=== PATIENT | female | born 1960 | race Caucasian/White ===

== ENCOUNTER 2019-11-30 19:41 | Inpatient (IN) | payer MEDICARE, OTHER ==
[~2019-11-30] VITALS: Ht 147.3 cm; Wt 70.1 kg
[2019-12-01 01:53] LABS: BASOPHILS % (AUTO) 0.8 % (0.0-2.0); HEMATOCRIT 36.9 % (36-46); HEMOGLOBIN 11.8 g/dL (12.0-16.0); LYMPHOCYTES # (AUTO) 2.7 K/uL (1.0-4.8); LYMPHOCYTES % (AUTO) 40.4 % (22.0-44.0); MEAN CORPUSCULAR HEMOGLOBIN 28.9 pg (26.0-34.0); MEAN CORPUSCULAR HGB CONC 32.1 G/dL (31.0-37.0); MEAN CORPUSCULAR VOLUME 90 fL (80-100); MONOCYTES # (AUTO) 0.3 K/uL (0.1-1.0); MONOCYTES % (AUTO) 5.1 % (2.0-9.0); NEUTROPHILS # (AUTO) 3.4 K/uL (1.8-7.7); NEUTROPHILS % (AUTO) 49.7 % (40.0-70.0); PLATELET COUNT (AUTO) 314 K/uL (150-450); RED BLOOD CELL COUNT(AUTO) 4.09 MIL/uL (4.00-5.20); RED CELL DISTRIBUTION WIDTH 19.2 % (11.5-14.5)
[2019-12-01 02:04] LABS: ANION GAP 6 mmol/L (8-16); CALCIUM, TOTAL 9.1 mg/dL (8.8-10.5); CARBON DIOXIDE 28 mmol/L (22-29); CHLORIDE 105 mmol/L (98-107); CREATININE 0.81 mg/dL (0.60-1.30); GLOMERULAR FILTR. RATE CALC > 60 mL/min (>60); GLUCOSE,RANDOM 102 mg/dL (70-110); POTASSIUM 3.9 mmol/L (3.5-5.1); SODIUM SERUM 139 mmol/L (136-145); UREA NITROGEN, BLOOD 19 mg/dL (7-18)
[2019-12-01 02:11] LABS: ALANINE AMINOTRANSFERASE 25 U/L (12-78); ALBUMIN 3.3 g/dL (3.4-5.0); ALKALINE PHOSPHATASE 69 U/L (46-116); ASPARTATE AMINOTRANSFERASE 20 U/L (15-37); BILIRUBIN,TOTAL 0.1 mg/dL (0.1-1.0); THYROID STIMULATING HORMONE 55.07 uIU/mL (0.36-3.74); TOTAL PROTEIN, SERUM 6.8 g/dL (6.4-8.2)
[2019-12-01] MEDS ORDERED: AZITHROMYCIN 500 MG/NS 250 ML IV ONE (03:30)
[2019-12-01] MEDS ORDERED: CefTRIAXone 1 GM/DEXTROSE 50 ML IV ONE (03:30)
[2019-12-01 04:22] LABS: PROTHROMBIN TIME 10.7 SEC (9.4-11.6)
[2019-12-01 04:34] LABS: LACTIC ACID 0.9 mmol/L (0.4-2.0)
[2019-12-01 04:49] LABS: C-REACTIVE PROTEIN QUANT 0.11 mg/dL (0.00-0.30); CREATINE KINASE, TOTAL ONLY 309 U/L (26-192); LACTATE DEHYDROGENASE 204 U/L (81-234)
[2019-12-01] MEDS ORDERED: 0.9% SODIUM CHLORIDE 10 ML SYRINGE IVP PRN (05:30)
[2019-12-01] MEDS ORDERED: ACETAMINOPHEN 325 MG TABLET PO PRN ×2 (05:30→07:30)
[2019-12-01 06:04] LABS: B-TYPE NATRIURETIC PEPTIDE < 4 pg/mL (0-100)
[2019-12-01] MEDS ORDERED: SODIUM CHLORIDE 0.9% 1,000 ML IV ONE (07:30)
[2019-12-01] MEDS ORDERED: MAGNESIUM HYDROXIDE SUSPENSION 30 ML UDCUP PO PRN (07:30)
[2019-12-01] MEDS: LEVOTHYROXINE SODIUM 50 MCG TABLET PO SCH (07:30)
[2019-12-01] MEDS: HEPARIN SODIUM,PORCINE 5,000 UNITS/ML VIAL SQ SCH ×2 (08:00→15:42)
[2019-12-01] MEDS: MULTIVITAMINS WITH MINERALS, THERAPEUTIC TABLET PO SCH (09:00)
[2019-12-01 09:37] VITALS: BP 134/71
[2019-12-01 11:15] VITALS: BP 120/82
[2019-12-01 19:44] VITALS: BP 108/69
[2019-12-02 04:32] VITALS: BP 126/79
[2019-12-02] MEDS: LEVOTHYROXINE SODIUM 50 MCG TABLET PO SCH (06:00)
[2019-12-02 07:11] VITALS: BP 108/82
[2019-12-02] MEDS: HEPARIN SODIUM,PORCINE 5,000 UNITS/ML VIAL SQ SCH ×3 (08:00→16:00)
[2019-12-02 08:28] LABS: APPEARANCE,URINE CLOUDY (CLEAR); BILIRUBIN,URINE NEGATIVE (NEGATIVE); GLUCOSE, URINE (UA) NEGATIVE (NEGATIVE); KETONES,URINE NEGATIVE (NEGATIVE); LEUKOCYTE ESTERASE ,URINE SMALL (NEGATIVE); NITRATE,URINE NEGATIVE (NEGATIVE); OCCULT BLOOD,URINE NEGATIVE (NEGATIVE); PH,URINE 6.5 (5.0-8.0); PROTEIN,URINE TRACE (NEGATIVE); UROBILINOGEN,URINE 0.2 mg/dL (<=1.0)
[2019-12-02 08:33] LABS: AMPHET/METH SCREEN,URINE NEGATIVE (NEGATIVE); BARBITURATE SCREEN, URINE NEGATIVE (NEGATIVE); BENZODIAZEPINES SCREEN,URINE NEGATIVE (NEGATIVE); CANNABINOID SCREEN,URINE NEGATIVE (NEGATIVE); COCAINE SCREEN,URINE NEGATIVE (NEGATIVE); METHADONE SCREEN, URINE NEGATIVE (NEGATIVE); OPIATE SCREEN,URINE NEGATIVE (NEGATIVE)
[2019-12-02] MEDS: MULTIVITAMINS WITH MINERALS, THERAPEUTIC TABLET PO SCH (08:47)
[2019-12-02 08:54] LABS: BACTERIA,URINE None Seen /HPF (None Seen); PHENCYCLIDINE SCREEN,URINE NEGATIVE (NEGATIVE); RBC,URINE 0-2 /HPF (0-2); SQUAMOUS EPITHELIAL CELL,UR Few /LPF (None Seen)
[2019-12-02 11:04] VITALS: BP 127/52
[2019-12-02] MEDS ORDERED: LEVO50 PO (12:15)
[2019-12-02] MEDS ORDERED: MULT-685 PO (12:16)
[2019-12-02] MEDS ORDERED: ALBU8.5H8 IH (12:17)
[2019-12-02] MEDS ORDERED: OLANZapine 5 MG RAPDIS TABLET PO PRN (15:00)
[2019-12-02 15:35] VITALS: BP 137/89
[2019-12-02] MEDS ORDERED: NALT50TA6 PO (18:58)
[2019-12-02] MEDS ORDERED: OLAN7.5T2 PO (18:59)
[2019-12-02] MEDS ORDERED: PARO10TA89 PO (18:59)
[2019-12-02] MEDS ORDERED: ACET-3207 PO (19:00)
[2019-12-02] MEDS ORDERED: MOM30 PO (19:01)
[2019-12-02] MEDS ORDERED: OLAN5TAB2 PO (19:02)
[2019-12-02] MEDS ORDERED: OLANZapine 5 MG RAPDIS TABLET PO SCH (21:00)
[2019-12-03] MEDS ORDERED: PARoxetine HCL 20 MG TABLET PO SCH (09:00)
[2019-12-03] MEDS ORDERED: NALTREXONE HCL 50 MG TABLET PO SCH (09:00)
== END 2019-12-02 18:40 | DRG 885 ==
LOC: EMS 19:42 → 5S 12-01 03:35 → 6N 12-01 05:49
PROVIDERS: ADMIT Internal Medicine; ATTEND Internal Medicine
DX: F29 Unspecified psychosis not due to a substance or known physiological condition (principal); E43 Unspecified severe protein-calorie malnutrition; E03.9 Hypothyroidism, unspecified; Z59.0 Homelessness; F17.210 Nicotine dependence, cigarettes, uncomplicated; I10 Essential (primary) hypertension; K58.9 Irritable bowel syndrome, unspecified; Z85.850 Personal history of malignant neoplasm of thyroid; Z68.32 Body mass index [BMI] 32.0-32.9, adult; Z88.8 Allergy status to other drugs, medicaments and biological substances; J44.9 Chronic obstructive pulmonary disease, unspecified; Z03.818 Encounter for observation for suspected exposure to other biological agents ruled out; Z91.19 Patient's noncompliance with other medical treatment and regimen
CPT/HCPCS: 83605; 83615; 84443; 86140; 87040; 87086; G0480; J0456; J0696; J1644; J7030

== ENCOUNTER 2019-12-02 16:50 | Inpatient (IN) | payer MEDICARE, MEDICAID ==
[~2019-12-02] VITALS: Ht 152.4 cm; Wt 68.6 kg
[~2019-12-02 16:50] MED LIST: ALBU8.5H8 IH; GABA-1181 PO; LEVO100 PO; LEVO50 PO; MULT-685 PO; NITR100C4 PO; PARO-66 PO
[2019-12-02] MEDS ORDERED: NALT50TA6 PO (18:58)
[2019-12-02] MEDS ORDERED: PARO10TA89 PO (18:59)
[2019-12-02] MEDS ORDERED: OLAN7.5T2 PO (18:59)
[2019-12-02] MEDS ORDERED: GuaiFENesin/D-METHORPHAN [SUGAR-FREE] 200-20MG/10 ML SYRUP UDCUP PO PRN (19:00)
[2019-12-02] MEDS ORDERED: ZOLPIDEM TARTRATE 10 MG TABLET PO PRN (19:00)
[2019-12-02] MEDS ORDERED: PROMETHAZINE HCL 25 MG TABLET PO PRN (19:00)
[2019-12-02] MEDS ORDERED: LOPERAMIDE HCL 2 MG CAPSULE PO PRN (19:00)
[2019-12-02] MEDS ORDERED: ACET-3207 PO (19:00)
[2019-12-02] MEDS ORDERED: QUEtiapine FUMARATE 100 MG TABLET PO PRN (19:00)
[2019-12-02] MEDS ORDERED: ACETAMINOPHEN 325 MG TABLET PO PRN (19:00)
[2019-12-02] MEDS ORDERED: PALIPERIDONE PALMITATE 234 MG/1.5 ML SYRINGE IM ONE (19:00)
[2019-12-02] MEDS ORDERED: TUBERCULIN, PURIFIED PROTEIN DERIVATIVE 5 TU/0.1 ML SYRINGE ID ONE (19:00)
[2019-12-02] MEDS ORDERED: PALIPERIDONE 1.5 MG ER TABLET PO PRN (19:00)
[2019-12-02] MEDS ORDERED: MAG HYDROX/AL HYDROX/SIMETH ES 30 ML SUSPENSION UDCUP PO PRN (19:00)
[2019-12-02] MEDS ORDERED: HydrOXYzine PAMOATE 50 MG CAPSULE PO PRN (19:00)
[2019-12-02] MEDS ORDERED: MAGNESIUM HYDROXIDE SUSPENSION 30 ML UDCUP PO PRN (19:00)
[2019-12-02] MEDS ORDERED: MOM30 PO (19:01)
[2019-12-02] MEDS ORDERED: OLAN5TAB2 PO (19:02)
[2019-12-02 20:09] VITALS: BP 148/92
[2019-12-02] MEDS: THIAMINE 100 MG TABLET PO SCH (20:24)
[2019-12-02] MEDS: PALIPERIDONE 3 MG ER TABLET PO SCH (20:24)
[2019-12-02] MEDS ORDERED: PNEUMOCOCCAL VACCINE POLYVALENT 0.5 ML VIAL [PPSV23] IM ONE (20:45)
[2019-12-03] MEDS: LEVOTHYROXINE SODIUM 50 MCG TABLET PO SCH (06:27)
[2019-12-03] MEDS: FOLIC ACID 1 MG TABLET PO SCH (08:09)
[2019-12-03] MEDS: THIAMINE 100 MG TABLET PO SCH ×2 (08:09→17:04)
[2019-12-03] MEDS: NALTREXONE HCL 50 MG TABLET PO SCH (08:09)
[2019-12-03] MEDS: DULoxetine HCL 20 MG CAPSULE PO SCH (08:09)
[2019-12-03] MEDS: MULTIVITAMINS WITH MINERALS, THERAPEUTIC TABLET PO SCH (08:09)
[2019-12-03 08:48] VITALS: BP 147/88
[2019-12-03] MEDS ORDERED: MULTIVITAMINS WITH MINERALS, THERAPEUTIC TABLET PO SCH (09:00)
[2019-12-03] MEDS: PALIPERIDONE 3 MG ER TABLET PO SCH (20:59)
[2019-12-04] MEDS: LEVOTHYROXINE SODIUM 50 MCG TABLET PO SCH (06:51)
[2019-12-04 08:00] VITALS: BP 159/86
[2019-12-04] MEDS: NALTREXONE HCL 50 MG TABLET PO SCH (08:12)
[2019-12-04] MEDS: THIAMINE 100 MG TABLET PO SCH ×2 (08:12→16:02)
[2019-12-04] MEDS: MULTIVITAMINS WITH MINERALS, THERAPEUTIC TABLET PO SCH (08:12)
[2019-12-04] MEDS: FOLIC ACID 1 MG TABLET PO SCH (08:12)
[2019-12-04] MEDS: DULoxetine HCL 20 MG CAPSULE PO SCH (08:12)
[2019-12-04 16:00] VITALS: BP 116/95
[2019-12-04] MEDS: FEXOFENADINE HCL 60 MG TABLET PO SCH (19:45)
[2019-12-04] MEDS: PALIPERIDONE 3 MG ER TABLET PO SCH (20:20)
[2019-12-05] MEDS: LEVOTHYROXINE SODIUM 50 MCG TABLET PO SCH (06:46)
[2019-12-05] MEDS: NALTREXONE HCL 50 MG TABLET PO SCH (09:00)
[2019-12-05] MEDS: THIAMINE 100 MG TABLET PO SCH ×2 (09:00→16:02)
[2019-12-05] MEDS: DULoxetine HCL 20 MG CAPSULE PO SCH (09:00)
[2019-12-05] MEDS: FEXOFENADINE HCL 60 MG TABLET PO SCH ×2 (09:00→16:02)
[2019-12-05] MEDS: FOLIC ACID 1 MG TABLET PO SCH (09:00)
[2019-12-05] MEDS: MULTIVITAMINS WITH MINERALS, THERAPEUTIC TABLET PO SCH (09:00)
[2019-12-05 16:48] VITALS: BP 134/87
[2019-12-05] MEDS: LORazepam 2 MG TABLET PO PRN (20:00)
[2019-12-05] MEDS: PALIPERIDONE 3 MG ER TABLET PO SCH (20:03)
[2019-12-06] MEDS: LORazepam 2 MG TABLET PO PRN (00:25)
[2019-12-06 04:55] VITALS: BP 128/80
[2019-12-06] MEDS: LEVOTHYROXINE SODIUM 50 MCG TABLET PO SCH (07:00)
[2019-12-06 08:30] VITALS: BP 100/73
[2019-12-06] MEDS ORDERED: PALIPERIDONE PALMITATE 156 MG/ML SYRINGE IM ONE (09:00)
[2019-12-06] MEDS: MULTIVITAMINS WITH MINERALS, THERAPEUTIC TABLET PO SCH (09:04)
[2019-12-06] MEDS: FOLIC ACID 1 MG TABLET PO SCH (09:05)
[2019-12-06] MEDS: DULoxetine HCL 20 MG CAPSULE PO SCH (09:05)
[2019-12-06] MEDS: FEXOFENADINE HCL 60 MG TABLET PO SCH ×2 (09:05→16:27)
[2019-12-06] MEDS: THIAMINE 100 MG TABLET PO SCH ×2 (09:06→16:21)
[2019-12-06] MEDS: NALTREXONE HCL 50 MG TABLET PO SCH (09:07)
[2019-12-06] MEDS ORDERED: OLANZapine 5 MG RAPDIS TABLET PO PRN (15:00)
[2019-12-06] MEDS ORDERED: OLANZapine 5 MG RAPDIS TABLET PO SCH (21:00)
[2019-12-07] MEDS: LEVOTHYROXINE SODIUM 75 MCG TABLET PO SCH (07:00)
[2019-12-07 08:00] VITALS: BP 113/62
[2019-12-07] MEDS: NALTREXONE HCL 50 MG TABLET PO SCH (09:00)
[2019-12-07] MEDS: FOLIC ACID 1 MG TABLET PO SCH (09:00)
[2019-12-07] MEDS: DULoxetine HCL 20 MG CAPSULE PO SCH (09:00)
[2019-12-07] MEDS: MULTIVITAMINS WITH MINERALS, THERAPEUTIC TABLET PO SCH (09:00)
[2019-12-07] MEDS: THIAMINE 100 MG TABLET PO SCH ×2 (09:00→16:41)
[2019-12-07] MEDS: FEXOFENADINE HCL 60 MG TABLET PO SCH ×2 (09:00→16:40)
[2019-12-07 19:14] VITALS: BP 108/78
[2019-12-07] MEDS: ARIPiprazole 15 MG TABLET PO SCH (20:45)
[2019-12-07] MEDS: GABAPENTIN 300 MG CAPSULE PO SCH (20:45)
[2019-12-07] MEDS ORDERED: DiphenhydrAMINE HCL 50 MG CAPSULE PO SCH (21:00)
[2019-12-08] MEDS: LEVOTHYROXINE SODIUM 75 MCG TABLET PO SCH (07:00)
[2019-12-08] MEDS: FEXOFENADINE HCL 60 MG TABLET PO SCH ×2 (08:21→17:00)
[2019-12-08] MEDS: MULTIVITAMINS WITH MINERALS, THERAPEUTIC TABLET PO SCH (08:21)
[2019-12-08] MEDS: GABAPENTIN 300 MG CAPSULE PO SCH ×4 (08:21→20:47)
[2019-12-08] MEDS: FOLIC ACID 1 MG TABLET PO SCH (08:22)
[2019-12-08] MEDS: PARoxetine HCL 10 MG TABLET PO SCH (08:22)
[2019-12-08] MEDS: THIAMINE 100 MG TABLET PO SCH ×2 (08:23→16:55)
[2019-12-08] MEDS: NALTREXONE HCL 50 MG TABLET PO SCH (08:23)
[2019-12-08 17:00] VITALS: BP 129/71
[2019-12-08] MEDS: DiphenhydrAMINE HCL 50 MG CAPSULE PO SCH (20:47)
[2019-12-08] MEDS: ARIPiprazole 15 MG TABLET PO SCH (20:47)
[2019-12-09] MEDS: LEVOTHYROXINE SODIUM 75 MCG TABLET PO SCH (06:57)
[2019-12-09] MEDS: FEXOFENADINE HCL 60 MG TABLET PO SCH ×2 (08:52→16:43)
[2019-12-09] MEDS: THIAMINE 100 MG TABLET PO SCH ×2 (08:52→16:45)
[2019-12-09] MEDS: MULTIVITAMINS WITH MINERALS, THERAPEUTIC TABLET PO SCH (08:52)
[2019-12-09] MEDS: PARoxetine HCL 10 MG TABLET PO SCH (08:52)
[2019-12-09] MEDS: GABAPENTIN 300 MG CAPSULE PO SCH ×4 (08:52→20:40)
[2019-12-09] MEDS: NALTREXONE HCL 50 MG TABLET PO SCH (08:53)
[2019-12-09] MEDS: FOLIC ACID 1 MG TABLET PO SCH (08:53)
[2019-12-09 09:39] VITALS: BP 98/53
[2019-12-09 16:37] VITALS: BP 129/73
[2019-12-09] MEDS: DiphenhydrAMINE HCL 50 MG CAPSULE PO SCH (20:41)
[2019-12-09] MEDS: ARIPiprazole 10 MG TABLET PO SCH (20:41)
[2019-12-10] MEDS: LEVOTHYROXINE SODIUM 75 MCG TABLET PO SCH (06:43)
[2019-12-10] MEDS: GABAPENTIN 300 MG CAPSULE PO SCH ×4 (08:33→21:00)
[2019-12-10] MEDS: MULTIVITAMINS WITH MINERALS, THERAPEUTIC TABLET PO SCH (08:33)
[2019-12-10] MEDS: THIAMINE 100 MG TABLET PO SCH ×2 (08:33→16:12)
[2019-12-10] MEDS: FOLIC ACID 1 MG TABLET PO SCH (08:34)
[2019-12-10] MEDS: PARoxetine HCL 10 MG TABLET PO SCH (08:34)
[2019-12-10] MEDS: FEXOFENADINE HCL 60 MG TABLET PO SCH ×2 (08:35→16:23)
[2019-12-10] MEDS: NALTREXONE HCL 50 MG TABLET PO SCH (08:35)
[2019-12-10 16:11] VITALS: BP 139/76
[2019-12-10] MEDS: DiphenhydrAMINE HCL 50 MG CAPSULE PO SCH (20:24)
[2019-12-10] MEDS: ARIPiprazole 10 MG TABLET PO SCH (20:24)
[2019-12-11] MEDS: LEVOTHYROXINE SODIUM 75 MCG TABLET PO SCH (07:00)
[2019-12-11] MEDS: GABAPENTIN 300 MG CAPSULE PO SCH ×4 (08:53→21:00)
[2019-12-11] MEDS: PARoxetine HCL 10 MG TABLET PO SCH (08:53)
[2019-12-11] MEDS: MULTIVITAMINS WITH MINERALS, THERAPEUTIC TABLET PO SCH (08:53)
[2019-12-11] MEDS: THIAMINE 100 MG TABLET PO SCH ×2 (08:54→18:58)
[2019-12-11] MEDS: FEXOFENADINE HCL 60 MG TABLET PO SCH ×2 (08:54→17:00)
[2019-12-11] MEDS: NALTREXONE HCL 50 MG TABLET PO SCH (08:54)
[2019-12-11] MEDS: FOLIC ACID 1 MG TABLET PO SCH (08:54)
[2019-12-11 09:18] VITALS: BP 104/63
[2019-12-11 10:55] LABS: FREE T4 (FREE THYROXINE) 0.23 ng/dL (0.76-1.46); MAGNESIUM 1.9 mg/dL (1.80-2.40); THYROID STIMULATING HORMONE 45.68 uIU/mL (0.36-3.74)
[2019-12-11 16:18] VITALS: BP 142/85
[2019-12-11] MEDS: ARIPiprazole 10 MG TABLET PO SCH (20:40)
[2019-12-11] MEDS: DiphenhydrAMINE HCL 50 MG CAPSULE PO SCH (20:40)
[2019-12-12] MEDS: LEVOTHYROXINE SODIUM 75 MCG TABLET PO SCH (06:20)
[2019-12-12] MEDS: NALTREXONE HCL 50 MG TABLET PO SCH (08:46)
[2019-12-12] MEDS: GABAPENTIN 300 MG CAPSULE PO SCH ×2 (08:46→12:02)
[2019-12-12] MEDS: FOLIC ACID 1 MG TABLET PO SCH (08:46)
[2019-12-12] MEDS: PARoxetine HCL 10 MG TABLET PO SCH (08:46)
[2019-12-12] MEDS: THIAMINE 100 MG TABLET PO SCH (08:46)
[2019-12-12] MEDS: MULTIVITAMINS WITH MINERALS, THERAPEUTIC TABLET PO SCH (08:46)
[2019-12-12] MEDS: FEXOFENADINE HCL 60 MG TABLET PO SCH ×2 (08:54→16:58)
[2019-12-12 09:19] VITALS: BP 87/48
[2019-12-12 09:45] VITALS: BP 121/74
[2019-12-12 17:00] VITALS: BP 134/110
[2019-12-12] MEDS: GABAPENTIN 400 MG CAPSULE PO SCH ×2 (17:00→20:09)
[2019-12-12] MEDS: DiphenhydrAMINE HCL 50 MG CAPSULE PO SCH (20:08)
[2019-12-12] MEDS: ARIPiprazole 10 MG TABLET PO SCH (20:08)
[2019-12-13] MEDS: LEVOTHYROXINE SODIUM 75 MCG TABLET PO SCH (06:19)
[2019-12-13] MEDS: MULTIVITAMINS WITH MINERALS, THERAPEUTIC TABLET PO SCH (08:36)
[2019-12-13] MEDS: PARoxetine HCL 10 MG TABLET PO SCH (08:36)
[2019-12-13] MEDS: NALTREXONE HCL 50 MG TABLET PO SCH (08:44)
[2019-12-13] MEDS: GABAPENTIN 400 MG CAPSULE PO SCH ×3 (08:44→16:12)
[2019-12-13] MEDS: FEXOFENADINE HCL 60 MG TABLET PO SCH ×2 (08:44→16:12)
[2019-12-13 10:40] VITALS: BP 120/82
[2019-12-13 16:49] VITALS: BP 121/79
[2019-12-13] MEDS ORDERED: ARIPiprazole ER SUSPENSION 400 MG PRE-FILLED DUAL CHAMBER SYRINGE IM ONE (19:30)
[2019-12-13] MEDS: ARIPiprazole 10 MG TABLET PO SCH (20:03)
[2019-12-13] MEDS: DiphenhydrAMINE HCL 50 MG CAPSULE PO SCH (20:03)
[2019-12-14] MEDS: LEVOTHYROXINE SODIUM 75 MCG TABLET PO SCH (06:45)
[2019-12-14 08:10] VITALS: BP 128/77
[2019-12-14] MEDS: MULTIVITAMINS WITH MINERALS, THERAPEUTIC TABLET PO SCH (08:47)
[2019-12-14] MEDS: PARoxetine HCL 10 MG TABLET PO SCH (08:48)
[2019-12-14] MEDS: NALTREXONE HCL 50 MG TABLET PO SCH (09:00)
[2019-12-14] MEDS: FEXOFENADINE HCL 60 MG TABLET PO SCH ×2 (09:00→16:26)
[2019-12-14] MEDS: DiphenhydrAMINE HCL 50 MG CAPSULE PO SCH (20:03)
[2019-12-14] MEDS: ARIPiprazole 10 MG TABLET PO SCH (20:03)
[2019-12-14 20:50] VITALS: BP 132/68
[2019-12-15] MEDS: LEVOTHYROXINE SODIUM 75 MCG TABLET PO SCH (06:33)
[2019-12-15 08:00] VITALS: BP 124/80
[2019-12-15] MEDS: NALTREXONE HCL 50 MG TABLET PO SCH (09:00)
[2019-12-15] MEDS: FEXOFENADINE HCL 60 MG TABLET PO SCH ×2 (09:00→16:59)
[2019-12-15] MEDS: PARoxetine HCL 10 MG TABLET PO SCH (09:28)
[2019-12-15] MEDS: MULTIVITAMINS WITH MINERALS, THERAPEUTIC TABLET PO SCH (09:30)
[2019-12-15 16:00] VITALS: BP 137/86
[2019-12-15] MEDS ORDERED: PARO10TA71 PO (16:10)
[2019-12-15] MEDS ORDERED: ARIP400S3 IM (16:10)
[2019-12-15] MEDS ORDERED: NALT50TA PO (16:10)
[2019-12-15] MEDS ORDERED: ARIP10TA8 PO (16:10)
[2019-12-15] MEDS ORDERED: DIPH50 PO (16:10)
[2019-12-15] MEDS: ARIPiprazole 10 MG TABLET PO SCH (20:23)
[2019-12-15] MEDS: DiphenhydrAMINE HCL 50 MG CAPSULE PO SCH (20:23)
[2019-12-16 04:25] VITALS: BP 125/81
[2019-12-16] MEDS: LEVOTHYROXINE SODIUM 75 MCG TABLET PO SCH (06:14)
[2019-12-16] MEDS: FEXOFENADINE HCL 60 MG TABLET PO SCH (09:00)
[2019-12-16] MEDS: NALTREXONE HCL 50 MG TABLET PO SCH (09:00)
[2019-12-16] MEDS: MULTIVITAMINS WITH MINERALS, THERAPEUTIC TABLET PO SCH (09:06)
[2019-12-16] MEDS: PARoxetine HCL 10 MG TABLET PO SCH (09:06)
[2019-12-16] MEDS ORDERED: FEXO-23 PO (11:02)
[2019-12-16] MEDS ORDERED: LEVO75 PO (11:02)
[2020-01-10] MEDS ORDERED: ARIPiprazole ER SUSPENSION 400 MG PRE-FILLED DUAL CHAMBER SYRINGE IM SCH (09:00)
== END 2019-12-16 13:50 | disposition home or self-care (01) | DRG 885 ==
LOC: 3EX 18:45
PROVIDERS: ADMIT Psychiatry & Neurology Psychiatry; ATTEND Psychiatry & Neurology Psychiatry
DX: F25.0 Schizoaffective disorder, bipolar type (principal); N39.0 Urinary tract infection, site not specified; M62.82 Rhabdomyolysis; F25.1 Schizoaffective disorder, depressive type; F17.210 Nicotine dependence, cigarettes, uncomplicated; F10.20 Alcohol dependence, uncomplicated; E78.5 Hyperlipidemia, unspecified; E66.9 Obesity, unspecified; D64.9 Anemia, unspecified; E03.9 Hypothyroidism, unspecified; J44.9 Chronic obstructive pulmonary disease, unspecified; R26.9 Unspecified abnormalities of gait and mobility; J30.9 Allergic rhinitis, unspecified; Z68.32 Body mass index [BMI] 32.0-32.9, adult; Z59.0 Homelessness; Z91.19 Patient's noncompliance with other medical treatment and regimen; Z99.3 Dependence on wheelchair; Z56.0 Unemployment, unspecified; Z88.2 Allergy status to sulfonamides; Z88.8 Allergy status to other drugs, medicaments and biological substances; Z88.6 Allergy status to analgesic agent
CPT/HCPCS: 83735; 84439; 84443; 86592; 87081; 97162; 97530; G0378; J0401

== ENCOUNTER 2020-01-16 11:37 | Inpatient (IN) | payer MEDICARE, MEDICAID ==
[~2020-01-16] VITALS: Ht 152.4 cm; Wt 73.0 kg
[~2020-01-16 11:37] MED LIST changes: -ALBU8.5H8 IH; +ARIP10TA8 PO; +ARIP400S3 IM; +DIPH50 PO; +FEXO-23 PO; -GABA-1181 PO; -LEVO100 PO; -LEVO50 PO; +LEVO75 PO; -MULT-685 PO; +NALT50TA PO; -NITR100C4 PO; -PARO-66 PO; +PARO10TA71 PO
[2020-01-16] MEDS ORDERED: LORazepam 2 MG/ML VIAL IM ONE ×2 (12:30→14:00)
[2020-01-16] MEDS ORDERED: HALOPERIDOL LACTATE 5 MG/ML VIAL IM ONE (12:30)
[2020-01-16] MEDS ORDERED: DiphenhydrAMINE HCL 50 MG/ML VIAL IM ONE ×2 (12:30→14:00)
[2020-01-16] MEDS ORDERED: GuaiFENesin/D-METHORPHAN [SUGAR-FREE] 200-20MG/10 ML SYRUP UDCUP PO PRN (15:00)
[2020-01-16] MEDS ORDERED: OLANZapine 5 MG RAPDIS TABLET PO PRN (15:00)
[2020-01-16] MEDS ORDERED: PROMETHAZINE HCL 25 MG TABLET PO PRN (15:00)
[2020-01-16] MEDS ORDERED: HydrOXYzine PAMOATE 50 MG CAPSULE PO PRN (15:00)
[2020-01-16] MEDS ORDERED: MAG HYDROX/AL HYDROX/SIMETH ES 30 ML SUSPENSION UDCUP PO PRN (15:00)
[2020-01-16] MEDS ORDERED: MAGNESIUM HYDROXIDE SUSPENSION 30 ML UDCUP PO PRN (15:00)
[2020-01-16] MEDS ORDERED: LOPERAMIDE HCL 2 MG CAPSULE PO PRN (15:00)
[2020-01-16] MEDS ORDERED: ARIPiprazole ER SUSPENSION 400 MG PRE-FILLED DUAL CHAMBER SYRINGE IM ONE (15:00)
[2020-01-16] MEDS ORDERED: LORazepam 2 MG TABLET PO PRN (15:00)
[2020-01-16 15:13] LABS: EOSINOPHILS % (AUTO) 4.1 % (1.0-6.0); HEMATOCRIT 35.5 % (36-46); HEMOGLOBIN 11.7 g/dL (12.0-16.0); LYMPHOCYTES # (AUTO) 1.8 K/uL (1.0-4.8); LYMPHOCYTES % (AUTO) 23.4 % (22.0-44.0); MEAN CORPUSCULAR HEMOGLOBIN 30.2 pg (26.0-34.0); MEAN CORPUSCULAR VOLUME 92 fL (80-100); MONOCYTES # (AUTO) 0.4 K/uL (0.1-1.0); MONOCYTES % (AUTO) 5.1 % (2.0-9.0); NEUTROPHILS % (AUTO) 66.4 % (40.0-70.0); PLATELET COUNT (AUTO) 334 K/uL (150-450); RED BLOOD CELL COUNT(AUTO) 3.88 MIL/uL (4.00-5.20); RED CELL DISTRIBUTION WIDTH 18.4 % (11.5-14.5)
[2020-01-16 15:24] LABS: ANION GAP 9 mmol/L (8-16); CALCIUM, TOTAL 8.6 mg/dL (8.8-10.5); CARBON DIOXIDE 26 mmol/L (22-29); CHLORIDE 98 mmol/L (98-107); CREATININE 0.77 mg/dL (0.60-1.30); GLOMERULAR FILTR. RATE CALC > 60 mL/min (>60); GLUCOSE,RANDOM 86 mg/dL (70-110); POTASSIUM 3.5 mmol/L (3.5-5.1); SODIUM SERUM 133 mmol/L (136-145); UREA NITROGEN, BLOOD 10 mg/dL (7-18)
[2020-01-16 15:50] LABS: ALANINE AMINOTRANSFERASE 23 U/L (12-78); ALBUMIN 3.5 g/dL (3.4-5.0); ALKALINE PHOSPHATASE 86 U/L (46-116); ASPARTATE AMINOTRANSFERASE 30 U/L (15-37); BILIRUBIN,TOTAL 0.3 mg/dL (0.1-1.0); CREATINE KINASE, TOTAL ONLY 919 U/L (26-192); TOTAL PROTEIN, SERUM 7.7 g/dL (6.4-8.2)
[2020-01-16 16:00] VITALS: BP 92/59
[2020-01-16] MEDS: FEXOFENADINE HCL 60 MG TABLET PO SCH (17:00)
[2020-01-16] MEDS: THIAMINE 100 MG TABLET PO SCH (17:00)
[2020-01-16] MEDS ORDERED: DiphenhydrAMINE HCL 25 MG CAPSULE PO SCH (21:00)
[2020-01-17] MEDS: LEVOTHYROXINE SODIUM 75 MCG TABLET PO SCH (06:26)
[2020-01-17 08:00] VITALS: BP 108/62
[2020-01-17] MEDS: MULTIVITAMINS WITH MINERALS, THERAPEUTIC TABLET PO SCH (09:00)
[2020-01-17] MEDS: FOLIC ACID 1 MG TABLET PO SCH (09:00)
[2020-01-17] MEDS: THIAMINE 100 MG TABLET PO SCH ×2 (09:00→17:00)
[2020-01-17] MEDS: ARIPiprazole 15 MG TABLET PO SCH (09:00)
[2020-01-17] MEDS: NALTREXONE HCL 50 MG TABLET PO SCH (09:00)
[2020-01-17] MEDS: FEXOFENADINE HCL 60 MG TABLET PO SCH ×2 (09:00→17:00)
[2020-01-17] MEDS ORDERED: ARIPiprazole ER SUSPENSION 400 MG PRE-FILLED DUAL CHAMBER SYRINGE IM ONE (09:00)
[2020-01-17 17:28] VITALS: BP 102/77
[2020-01-17] MEDS: DiphenhydrAMINE HCL 50 MG CAPSULE PO SCH (21:00)
[2020-01-18 00:45] VITALS: BP 145/91
[2020-01-18] MEDS: ZOLPIDEM TARTRATE 10 MG TABLET PO PRN (01:22)
[2020-01-18] MEDS: LEVOTHYROXINE SODIUM 75 MCG TABLET PO SCH (06:36)
[2020-01-18 08:23] VITALS: BP 96/59
[2020-01-18] MEDS: FOLIC ACID 1 MG TABLET PO SCH (09:00)
[2020-01-18] MEDS: ARIPiprazole 15 MG TABLET PO SCH (09:00)
[2020-01-18] MEDS: MULTIVITAMINS WITH MINERALS, THERAPEUTIC TABLET PO SCH (09:00)
[2020-01-18] MEDS: NALTREXONE HCL 50 MG TABLET PO SCH (09:00)
[2020-01-18] MEDS: FEXOFENADINE HCL 60 MG TABLET PO SCH ×3 (09:00→18:38)
[2020-01-18] MEDS: THIAMINE 100 MG TABLET PO SCH ×2 (09:00→18:38)
[2020-01-18] MEDS: FUROSEMIDE 20 MG TABLET PO SCH (11:30)
[2020-01-18 16:03] VITALS: BP 115/76
[2020-01-18] MEDS: DiphenhydrAMINE HCL 50 MG CAPSULE PO SCH (20:33)
[2020-01-18] MEDS ORDERED: LORazepam 2 MG TABLET PO PRN (23:00)
[2020-01-19 08:00] VITALS: BP 131/83
[2020-01-19] MEDS: LEVOTHYROXINE SODIUM 75 MCG TABLET PO SCH (08:00)
[2020-01-19] MEDS: FEXOFENADINE HCL 60 MG TABLET PO SCH ×2 (08:01→17:00)
[2020-01-19] MEDS: MULTIVITAMINS WITH MINERALS, THERAPEUTIC TABLET PO SCH (08:01)
[2020-01-19] MEDS: NALTREXONE HCL 50 MG TABLET PO SCH (08:01)
[2020-01-19] MEDS: FUROSEMIDE 20 MG TABLET PO SCH (08:01)
[2020-01-19] MEDS: ARIPiprazole 15 MG TABLET PO SCH (08:01)
[2020-01-19] MEDS: THIAMINE 100 MG TABLET PO SCH ×2 (08:02→17:26)
[2020-01-19] MEDS: FOLIC ACID 1 MG TABLET PO SCH (08:02)
[2020-01-19] MEDS ORDERED: PIPERONYL BUTOXIDE/PYRETHRINS 120 ML SHAMPOO TP ONE (15:15)
[2020-01-19 16:13] VITALS: BP 115/78
[2020-01-19] MEDS: DiphenhydrAMINE HCL 50 MG CAPSULE PO SCH (20:08)
[2020-01-20] MEDS: LEVOTHYROXINE SODIUM 75 MCG TABLET PO SCH (06:50)
[2020-01-20] MEDS: ARIPiprazole 10 MG TABLET PO SCH (08:56)
[2020-01-20] MEDS: FOLIC ACID 1 MG TABLET PO SCH (08:56)
[2020-01-20] MEDS: MULTIVITAMINS WITH MINERALS, THERAPEUTIC TABLET PO SCH (08:56)
[2020-01-20] MEDS: NALTREXONE HCL 50 MG TABLET PO SCH (08:57)
[2020-01-20] MEDS: THIAMINE 100 MG TABLET PO SCH ×2 (08:57→16:21)
[2020-01-20] MEDS: FUROSEMIDE 20 MG TABLET PO SCH (08:57)
[2020-01-20] MEDS: FEXOFENADINE HCL 60 MG TABLET PO SCH ×2 (08:57→16:26)
[2020-01-20 09:05] VITALS: BP 109/67
[2020-01-20 18:12] VITALS: BP 105/65
[2020-01-20] MEDS: DiphenhydrAMINE HCL 50 MG CAPSULE PO SCH (20:20)
[2020-01-20] MEDS ORDERED: ARIPiprazole ER SUSPENSION 400 MG PRE-FILLED DUAL CHAMBER SYRINGE IM ONE (20:45)
[2020-01-21] MEDS: LEVOTHYROXINE SODIUM 75 MCG TABLET PO SCH (06:32)
[2020-01-21] MEDS: FEXOFENADINE HCL 60 MG TABLET PO SCH ×2 (08:34→16:42)
[2020-01-21] MEDS: ARIPiprazole 10 MG TABLET PO SCH (08:34)
[2020-01-21] MEDS: FUROSEMIDE 20 MG TABLET PO SCH (08:35)
[2020-01-21] MEDS: FOLIC ACID 1 MG TABLET PO SCH (08:35)
[2020-01-21] MEDS: THIAMINE 100 MG TABLET PO SCH ×2 (08:35→16:33)
[2020-01-21] MEDS: NALTREXONE HCL 50 MG TABLET PO SCH (08:36)
[2020-01-21] MEDS: MULTIVITAMINS WITH MINERALS, THERAPEUTIC TABLET PO SCH (08:36)
[2020-01-21 09:22] VITALS: BP 149/82
[2020-01-21 16:00] VITALS: BP 134/87
[2020-01-21 16:05] VITALS: BP 134/87
[2020-01-21] MEDS: DiphenhydrAMINE HCL 50 MG CAPSULE PO SCH (20:01)
[2020-01-22] MEDS: LEVOTHYROXINE SODIUM 75 MCG TABLET PO SCH (06:46)
[2020-01-22 08:00] VITALS: BP 100/61
[2020-01-22] MEDS: MULTIVITAMINS WITH MINERALS, THERAPEUTIC TABLET PO SCH (08:44)
[2020-01-22] MEDS: FUROSEMIDE 20 MG TABLET PO SCH (08:45)
[2020-01-22] MEDS: NALTREXONE HCL 50 MG TABLET PO SCH (08:45)
[2020-01-22] MEDS: FOLIC ACID 1 MG TABLET PO SCH (08:45)
[2020-01-22] MEDS: ARIPiprazole 10 MG TABLET PO SCH (08:46)
[2020-01-22] MEDS: FEXOFENADINE HCL 60 MG TABLET PO SCH ×2 (08:46→16:54)
[2020-01-22] MEDS: THIAMINE 100 MG TABLET PO SCH ×2 (08:57→16:48)
[2020-01-22 18:39] VITALS: BP 122/78
[2020-01-22] MEDS: DiphenhydrAMINE HCL 50 MG CAPSULE PO SCH (20:31)
[2020-01-23] MEDS: ZOLPIDEM TARTRATE 10 MG TABLET PO PRN (01:07)
[2020-01-23] MEDS: LEVOTHYROXINE SODIUM 75 MCG TABLET PO SCH (06:16)
[2020-01-23 08:10] VITALS: BP 134/70
[2020-01-23] MEDS: THIAMINE 100 MG TABLET PO SCH ×2 (08:54→16:03)
[2020-01-23] MEDS: MULTIVITAMINS WITH MINERALS, THERAPEUTIC TABLET PO SCH (08:54)
[2020-01-23] MEDS: NALTREXONE HCL 50 MG TABLET PO SCH (08:55)
[2020-01-23] MEDS: FOLIC ACID 1 MG TABLET PO SCH (08:55)
[2020-01-23] MEDS: ARIPiprazole 10 MG TABLET PO SCH ×2 (08:55→09:00)
[2020-01-23] MEDS: FUROSEMIDE 20 MG TABLET PO SCH (08:55)
[2020-01-23] MEDS: FEXOFENADINE HCL 60 MG TABLET PO SCH ×2 (09:00→16:12)
[2020-01-23 16:16] VITALS: BP 121/77
[2020-01-23] MEDS: DiphenhydrAMINE HCL 50 MG CAPSULE PO SCH (21:00)
[2020-01-24] MEDS: LEVOTHYROXINE SODIUM 75 MCG TABLET PO SCH (06:31)
[2020-01-24] MEDS: FEXOFENADINE HCL 60 MG TABLET PO SCH ×2 (09:00→15:59)
[2020-01-24] MEDS: FOLIC ACID 1 MG TABLET PO SCH (10:39)
[2020-01-24] MEDS: NALTREXONE HCL 50 MG TABLET PO SCH (10:39)
[2020-01-24] MEDS: THIAMINE 100 MG TABLET PO SCH ×2 (10:39→15:59)
[2020-01-24] MEDS: FUROSEMIDE 20 MG TABLET PO SCH (10:39)
[2020-01-24] MEDS: MULTIVITAMINS WITH MINERALS, THERAPEUTIC TABLET PO SCH (10:40)
[2020-01-24] MEDS: ARIPiprazole 10 MG TABLET PO SCH (10:40)
[2020-01-24 12:15] VITALS: BP 108/72
[2020-01-24] MEDS ORDERED: PERMETHRIN 1% 60 ML LOTION TP ONE (13:45)
[2020-01-24 16:05] VITALS: BP 124/89
[2020-01-24] MEDS: DiphenhydrAMINE HCL 50 MG CAPSULE PO SCH (20:15)
[2020-01-24] MEDS: LORazepam 0.5 MG TABLET PO PRN (23:57)
[2020-01-25 00:01] VITALS: BP 127/79
[2020-01-25] MEDS: LEVOTHYROXINE SODIUM 75 MCG TABLET PO SCH (07:00)
[2020-01-25] MEDS: FUROSEMIDE 20 MG TABLET PO SCH (08:27)
[2020-01-25] MEDS: NALTREXONE HCL 50 MG TABLET PO SCH (08:27)
[2020-01-25] MEDS: MULTIVITAMINS WITH MINERALS, THERAPEUTIC TABLET PO SCH (08:27)
[2020-01-25] MEDS: THIAMINE 100 MG TABLET PO SCH ×2 (08:27→16:32)
[2020-01-25] MEDS: FOLIC ACID 1 MG TABLET PO SCH (08:28)
[2020-01-25 08:29] VITALS: BP 145/74
[2020-01-25] MEDS: FEXOFENADINE HCL 60 MG TABLET PO SCH ×2 (08:59→16:32)
[2020-01-25] MEDS: ARIPiprazole 10 MG TABLET PO SCH (08:59)
[2020-01-25] MEDS ORDERED: ARIPiprazole ER SUSPENSION 400 MG PRE-FILLED DUAL CHAMBER SYRINGE IM ONE (11:45)
[2020-01-25] MEDS: LORazepam 0.5 MG TABLET PO PRN (15:52)
[2020-01-25 16:08] VITALS: BP 130/80
[2020-01-25] MEDS: DiphenhydrAMINE HCL 50 MG CAPSULE PO SCH (20:24)
[2020-01-26 01:38] VITALS: BP 119/68
[2020-01-26] MEDS: LEVOTHYROXINE SODIUM 75 MCG TABLET PO SCH (06:27)
[2020-01-26] MEDS: PARoxetine HCL 10 MG TABLET PO SCH (10:25)
[2020-01-26] MEDS: FOLIC ACID 1 MG TABLET PO SCH (10:25)
[2020-01-26] MEDS: ARIPiprazole 10 MG TABLET PO SCH (10:25)
[2020-01-26] MEDS: FEXOFENADINE HCL 60 MG TABLET PO SCH ×2 (10:25→17:00)
[2020-01-26] MEDS: FUROSEMIDE 20 MG TABLET PO SCH (10:25)
[2020-01-26] MEDS: NALTREXONE HCL 50 MG TABLET PO SCH (10:25)
[2020-01-26] MEDS: MULTIVITAMINS WITH MINERALS, THERAPEUTIC TABLET PO SCH (10:26)
[2020-01-26] MEDS: THIAMINE 100 MG TABLET PO SCH (10:29)
[2020-01-26 16:03] VITALS: BP 135/67
[2020-01-26] MEDS: LORazepam 0.5 MG TABLET PO PRN (20:51)
[2020-01-26] MEDS: DiphenhydrAMINE HCL 50 MG CAPSULE PO SCH (20:51)
[2020-01-27] MEDS: LEVOTHYROXINE SODIUM 75 MCG TABLET PO SCH (06:22)
[2020-01-27] MEDS: LURASIDONE HCL 40 MG TABLET PO SCH (07:08)
[2020-01-27] MEDS: FEXOFENADINE HCL 60 MG TABLET PO SCH ×2 (08:22→16:29)
[2020-01-27] MEDS: MULTIVITAMINS WITH MINERALS, THERAPEUTIC TABLET PO SCH (08:22)
[2020-01-27] MEDS: GABAPENTIN 100 MG CAPSULE PO SCH ×3 (08:22→16:25)
[2020-01-27] MEDS: NALTREXONE HCL 50 MG TABLET PO SCH (08:22)
[2020-01-27] MEDS: FUROSEMIDE 20 MG TABLET PO SCH (08:22)
[2020-01-27] MEDS: PARoxetine HCL 10 MG TABLET PO SCH (08:23)
[2020-01-27 08:31] VITALS: BP 140/73
[2020-01-27 16:00] VITALS: BP 128/82
[2020-01-27] MEDS: DiphenhydrAMINE HCL 50 MG CAPSULE PO SCH (20:15)
[2020-01-28 01:15] VITALS: BP 135/77
[2020-01-28] MEDS: LEVOTHYROXINE SODIUM 75 MCG TABLET PO SCH (06:41)
[2020-01-28] MEDS: LURASIDONE HCL 40 MG TABLET PO SCH (06:59)
[2020-01-28 08:00] VITALS: BP 101/68
[2020-01-28] MEDS: MULTIVITAMINS WITH MINERALS, THERAPEUTIC TABLET PO SCH (08:10)
[2020-01-28] MEDS: NALTREXONE HCL 50 MG TABLET PO SCH (08:11)
[2020-01-28] MEDS: PARoxetine HCL 10 MG TABLET PO SCH (08:11)
[2020-01-28] MEDS: GABAPENTIN 100 MG CAPSULE PO SCH ×3 (08:11→16:04)
[2020-01-28] MEDS: FEXOFENADINE HCL 60 MG TABLET PO SCH ×2 (08:22→16:08)
[2020-01-28] MEDS: FUROSEMIDE 20 MG TABLET PO SCH (08:22)
[2020-01-28 16:14] VITALS: BP 141/89
[2020-01-28] MEDS: DiphenhydrAMINE HCL 50 MG CAPSULE PO SCH (20:37)
[2020-01-29 04:32] VITALS: BP 103/70
[2020-01-29] MEDS: LEVOTHYROXINE SODIUM 75 MCG TABLET PO SCH (06:20)
[2020-01-29] MEDS: MULTIVITAMINS WITH MINERALS, THERAPEUTIC TABLET PO SCH (08:05)
[2020-01-29 08:06] VITALS: BP 132/71
[2020-01-29] MEDS: NALTREXONE HCL 50 MG TABLET PO SCH (08:06)
[2020-01-29] MEDS: PARoxetine HCL 10 MG TABLET PO SCH (08:06)
[2020-01-29] MEDS: GABAPENTIN 100 MG CAPSULE PO SCH ×3 (08:06→17:14)
[2020-01-29] MEDS: FUROSEMIDE 20 MG TABLET PO SCH (08:07)
[2020-01-29] MEDS: FEXOFENADINE HCL 60 MG TABLET PO SCH ×2 (08:07→17:00)
[2020-01-29] MEDS: LURASIDONE HCL 40 MG TABLET PO SCH (08:14)
[2020-01-29 16:56] VITALS: BP 119/65
[2020-01-29] MEDS: DiphenhydrAMINE HCL 50 MG CAPSULE PO SCH (20:15)
[2020-01-29] MEDS ORDERED: DiphenhydrAMINE HCL 25 MG CAPSULE PO SCH (21:00)
[2020-01-30 01:19] VITALS: BP 106/71
[2020-01-30] MEDS: LEVOTHYROXINE SODIUM 75 MCG TABLET PO SCH (06:21)
[2020-01-30 08:32] VITALS: BP 159/87
[2020-01-30] MEDS: FUROSEMIDE 20 MG TABLET PO SCH (08:35)
[2020-01-30] MEDS: FEXOFENADINE HCL 60 MG TABLET PO SCH ×2 (08:35→17:00)
[2020-01-30] MEDS: LURASIDONE HCL 40 MG TABLET PO SCH (08:35)
[2020-01-30] MEDS: MULTIVITAMINS WITH MINERALS, THERAPEUTIC TABLET PO SCH (08:35)
[2020-01-30] MEDS: PARoxetine HCL 10 MG TABLET PO SCH (08:36)
[2020-01-30] MEDS: NALTREXONE HCL 50 MG TABLET PO SCH (08:36)
[2020-01-30] MEDS: DiphenhydrAMINE HCL 25 MG CAPSULE PO SCH ×2 (08:57→20:15)
[2020-01-30] MEDS: GABAPENTIN 100 MG CAPSULE PO SCH ×2 (09:00→13:00)
[2020-01-30 16:05] VITALS: BP 128/80
[2020-01-30 16:06] VITALS: BP 128/80
[2020-01-30] MEDS ORDERED: GABAPENTIN 100 MG CAPSULE PO PRN (19:00)
[2020-01-31 02:30] VITALS: BP 118/70
[2020-01-31] MEDS: LEVOTHYROXINE SODIUM 75 MCG TABLET PO SCH (06:30)
[2020-01-31] MEDS: LURASIDONE HCL 40 MG TABLET PO SCH (07:28)
[2020-01-31 08:00] VITALS: BP 120/80
[2020-01-31] MEDS: PARoxetine HCL 10 MG TABLET PO SCH (08:04)
[2020-01-31] MEDS: MULTIVITAMINS WITH MINERALS, THERAPEUTIC TABLET PO SCH (08:04)
[2020-01-31] MEDS: DiphenhydrAMINE HCL 25 MG CAPSULE PO SCH ×2 (08:04→20:03)
[2020-01-31] MEDS: NALTREXONE HCL 50 MG TABLET PO SCH (08:04)
[2020-01-31] MEDS: FUROSEMIDE 20 MG TABLET PO SCH (08:05)
[2020-01-31] MEDS: FEXOFENADINE HCL 60 MG TABLET PO SCH ×2 (08:06→17:00)
[2020-01-31 16:09] VITALS: BP 125/77
[2020-02-01 00:29] VITALS: BP 111/74
[2020-02-01] MEDS: LEVOTHYROXINE SODIUM 75 MCG TABLET PO SCH (06:31)
[2020-02-01] MEDS: LURASIDONE HCL 40 MG TABLET PO SCH (07:16)
[2020-02-01] MEDS: DiphenhydrAMINE HCL 25 MG CAPSULE PO SCH ×2 (08:38→20:21)
[2020-02-01] MEDS: NALTREXONE HCL 50 MG TABLET PO SCH (08:38)
[2020-02-01] MEDS: FEXOFENADINE HCL 60 MG TABLET PO SCH ×3 (08:38→17:00)
[2020-02-01] MEDS: PARoxetine HCL 10 MG TABLET PO SCH (08:39)
[2020-02-01] MEDS: MULTIVITAMINS WITH MINERALS, THERAPEUTIC TABLET PO SCH (08:39)
[2020-02-01] MEDS: FUROSEMIDE 20 MG TABLET PO SCH (08:46)
[2020-02-01 09:16] VITALS: BP 116/77
[2020-02-01 16:03] VITALS: BP 110/64
[2020-02-02 00:30] VITALS: BP 118/65
[2020-02-02] MEDS: LEVOTHYROXINE SODIUM 75 MCG TABLET PO SCH (06:48)
[2020-02-02] MEDS: LURASIDONE HCL 60 MG TABLET PO SCH ×3 (07:29→09:25)
[2020-02-02] MEDS: FEXOFENADINE HCL 60 MG TABLET PO SCH ×2 (09:00→17:00)
[2020-02-02 09:09] VITALS: BP 129/66
[2020-02-02] MEDS: MULTIVITAMINS WITH MINERALS, THERAPEUTIC TABLET PO SCH (09:11)
[2020-02-02] MEDS: DiphenhydrAMINE HCL 25 MG CAPSULE PO SCH ×2 (09:11→21:24)
[2020-02-02] MEDS: FUROSEMIDE 20 MG TABLET PO SCH (09:11)
[2020-02-02] MEDS: NALTREXONE HCL 50 MG TABLET PO SCH (09:12)
[2020-02-02] MEDS: PARoxetine HCL 10 MG TABLET PO SCH (09:12)
[2020-02-02 16:14] VITALS: BP 124/74
[2020-02-03 02:08] VITALS: BP 107/62
[2020-02-03] MEDS: LEVOTHYROXINE SODIUM 75 MCG TABLET PO SCH (06:55)
[2020-02-03 08:14] VITALS: BP 105/80
[2020-02-03] MEDS: MULTIVITAMINS WITH MINERALS, THERAPEUTIC TABLET PO SCH (08:16)
[2020-02-03] MEDS: DiphenhydrAMINE HCL 25 MG CAPSULE PO SCH ×2 (08:16→20:13)
[2020-02-03] MEDS: NALTREXONE HCL 50 MG TABLET PO SCH (08:17)
[2020-02-03] MEDS: LURASIDONE HCL 80 MG TABLET PO SCH (08:17)
[2020-02-03] MEDS: FUROSEMIDE 20 MG TABLET PO SCH (08:17)
[2020-02-03] MEDS: PARoxetine HCL 10 MG TABLET PO SCH (08:17)
[2020-02-03] MEDS: FEXOFENADINE HCL 60 MG TABLET PO SCH ×2 (08:27→16:23)
[2020-02-03 16:08] VITALS: BP 108/65
[2020-02-04 00:11] VITALS: BP 130/78
[2020-02-04] MEDS: LURASIDONE HCL 80 MG TABLET PO SCH (06:35)
[2020-02-04] MEDS: LEVOTHYROXINE SODIUM 75 MCG TABLET PO SCH (06:41)
[2020-02-04] MEDS: DiphenhydrAMINE HCL 25 MG CAPSULE PO SCH ×3 (09:00→20:50)
[2020-02-04] MEDS: FUROSEMIDE 20 MG TABLET PO SCH (09:00)
[2020-02-04] MEDS: FEXOFENADINE HCL 60 MG TABLET PO SCH ×2 (09:00→16:12)
[2020-02-04] MEDS: MULTIVITAMINS WITH MINERALS, THERAPEUTIC TABLET PO SCH (09:00)
[2020-02-04] MEDS: NALTREXONE HCL 50 MG TABLET PO SCH (09:00)
[2020-02-04] MEDS: PARoxetine HCL 10 MG TABLET PO SCH (09:00)
[2020-02-04 10:05] VITALS: BP 108/68
[2020-02-04 18:38] VITALS: BP 137/82
[2020-02-05 04:39] VITALS: BP 120/80
[2020-02-05] MEDS: LEVOTHYROXINE SODIUM 75 MCG TABLET PO SCH (06:42)
[2020-02-05] MEDS: LURASIDONE HCL 80 MG TABLET PO SCH (06:50)
[2020-02-05 08:28] VITALS: BP 95/50
[2020-02-05] MEDS: DiphenhydrAMINE HCL 25 MG CAPSULE PO SCH ×2 (09:00→20:42)
[2020-02-05] MEDS: NALTREXONE HCL 50 MG TABLET PO SCH (09:00)
[2020-02-05] MEDS: FEXOFENADINE HCL 60 MG TABLET PO SCH ×2 (09:00→17:00)
[2020-02-05] MEDS: FUROSEMIDE 20 MG TABLET PO SCH (09:00)
[2020-02-05] MEDS: MULTIVITAMINS WITH MINERALS, THERAPEUTIC TABLET PO SCH (09:00)
[2020-02-05] MEDS: PARoxetine HCL 10 MG TABLET PO SCH (09:00)
[2020-02-05 16:30] VITALS: BP 118/78
[2020-02-06] MEDS: LEVOTHYROXINE SODIUM 75 MCG TABLET PO SCH (06:38)
[2020-02-06] MEDS: LURASIDONE HCL 80 MG TABLET PO SCH (07:05)
[2020-02-06] MEDS: MULTIVITAMINS WITH MINERALS, THERAPEUTIC TABLET PO SCH (09:00)
[2020-02-06] MEDS: FEXOFENADINE HCL 60 MG TABLET PO SCH ×2 (09:00→16:34)
[2020-02-06] MEDS: FUROSEMIDE 20 MG TABLET PO SCH (09:00)
[2020-02-06] MEDS: NALTREXONE HCL 50 MG TABLET PO SCH (09:00)
[2020-02-06] MEDS: DiphenhydrAMINE HCL 25 MG CAPSULE PO SCH ×2 (10:08→21:00)
[2020-02-06] MEDS: PARoxetine HCL 10 MG TABLET PO SCH (10:09)
[2020-02-06 14:30] VITALS: BP 118/77
[2020-02-06 16:26] VITALS: BP 121/75
[2020-02-06 16:30] VITALS: BP 114/74
[2020-02-06] MEDS ORDERED: LURA80TA2 PO (19:02)
[2020-02-06] MEDS ORDERED: DIPH25 PO (19:02)
[2020-02-06] MEDS ORDERED: PARO10TA71 PO (19:02)
[2020-02-06] MEDS ORDERED: NALT50TA PO (19:02)
[2020-02-07] MEDS: LURASIDONE HCL 80 MG TABLET PO SCH (06:34)
[2020-02-07] MEDS: LEVOTHYROXINE SODIUM 75 MCG TABLET PO SCH (06:34)
[2020-02-07 08:00] VITALS: BP 123/63
[2020-02-07] MEDS: FEXOFENADINE HCL 60 MG TABLET PO SCH (09:00)
[2020-02-07] MEDS: MULTIVITAMINS WITH MINERALS, THERAPEUTIC TABLET PO SCH (09:03)
[2020-02-07] MEDS: FUROSEMIDE 20 MG TABLET PO SCH (09:03)
[2020-02-07] MEDS: NALTREXONE HCL 50 MG TABLET PO SCH (09:03)
[2020-02-07] MEDS: DiphenhydrAMINE HCL 25 MG CAPSULE PO SCH (09:04)
[2020-02-07] MEDS: PARoxetine HCL 10 MG TABLET PO SCH (09:05)
[2020-02-07] MEDS ORDERED: FURO20 PO (09:25)
[2020-02-07] MEDS ORDERED: LEVO75 PO (09:26)
[2020-02-07] MEDS ORDERED: MULT-248 PO (09:40)
[2020-02-22] MEDS ORDERED: ARIPiprazole ER SUSPENSION 400 MG PRE-FILLED DUAL CHAMBER SYRINGE IM SCH (09:00)
== END 2020-02-07 14:19 | disposition home or self-care (01) | DRG 885 ==
LOC: EMS 11:43 → 3EX 13:42
PROVIDERS: ADMIT Psychiatry & Neurology Psychiatry; ATTEND Psychiatry & Neurology Psychiatry
DX: F25.9 Schizoaffective disorder, unspecified (principal); R45.851 Suicidal ideations; M62.82 Rhabdomyolysis; E87.1 Hypo-osmolality and hyponatremia; F22 Delusional disorders; J44.9 Chronic obstructive pulmonary disease, unspecified; I10 Essential (primary) hypertension; K58.9 Irritable bowel syndrome, unspecified; D64.9 Anemia, unspecified; M19.90 Unspecified osteoarthritis, unspecified site; F17.210 Nicotine dependence, cigarettes, uncomplicated; F12.90 Cannabis use, unspecified, uncomplicated; F39 Unspecified mood [affective] disorder; E03.9 Hypothyroidism, unspecified; F32.9 Major depressive disorder, single episode, unspecified; J30.9 Allergic rhinitis, unspecified; R26.9 Unspecified abnormalities of gait and mobility; Z86.73 Personal history of transient ischemic attack (TIA), and cerebral infarction without residual deficits; Z85.850 Personal history of malignant neoplasm of thyroid; Z91.14 Patient's other noncompliance with medication regimen; Z91.19 Patient's noncompliance with other medical treatment and regimen; Z99.3 Dependence on wheelchair; Z88.5 Allergy status to narcotic agent; Z88.8 Allergy status to other drugs, medicaments and biological substances; Z88.6 Allergy status to analgesic agent; Z79.899 Other long term (current) drug therapy
CPT/HCPCS: 83735; 93005; 97110; 97116; 97163; 97166; 97535; G0378; G0480; J0401; J1200; J1630; J2060

== ENCOUNTER 2020-02-16 16:50 | Inpatient (IN) | payer MEDICARE, OTHER ==
[~2020-02-16] VITALS: Ht 149.9 cm; Wt 60.0 kg
[~2020-02-16 16:50] MED LIST changes: -ARIP10TA8 PO; -ARIP400S3 IM; +DIPH25 PO; +FURO20 PO; +LURA40TA2 PO; +LURA80TA2 PO; +MULT-248 PO
[2020-02-16 18:00] VITALS: BP 145/85
[2020-02-16] MEDS ORDERED: ONDANSETRON HCL 4 MG/2 ML VIAL IVP PRN (19:30)
[2020-02-16] MEDS ORDERED: BISACODYL 10 MG RECTAL RECTAL SUPPOSITORY PR PRN (19:30)
[2020-02-16] MEDS ORDERED: MAGNESIUM HYDROXIDE SUSPENSION 30 ML UDCUP PO PRN (19:30)
[2020-02-16] MEDS ORDERED: VANCOMYCIN HCL 1.25 GM in DEXTROSE 5%-WATER 250 ML IV ONE (20:00)
[2020-02-16 20:03] VITALS: BP 136/99
[2020-02-16] MEDS ORDERED: SODIUM CHLORIDE 0.9% 250 ML IV ONE (20:50)
[2020-02-16] MEDS ORDERED: ZOLPIDEM TARTRATE 10 MG TABLET PO PRN (21:15)
[2020-02-16] MEDS: DiphenhydrAMINE HCL 25 MG CAPSULE PO SCH (22:01)
[2020-02-16] MEDS: HEPARIN SODIUM,PORCINE 5,000 UNITS/ML VIAL SQ SCH (22:01)
[2020-02-16] MEDS: THIAMINE 100 MG TABLET PO SCH (22:02)
[2020-02-16] MEDS: GABAPENTIN 300 MG CAPSULE PO SCH (22:05)
[2020-02-16 23:30] VITALS: BP 132/67
[2020-02-17 05:15] VITALS: BP 96/58
[2020-02-17] MEDS: LEVOTHYROXINE SODIUM 75 MCG TABLET PO SCH ×4 (06:56→14:29)
[2020-02-17 07:51] VITALS: BP 98/67
[2020-02-17] MEDS: HEPARIN SODIUM,PORCINE 5,000 UNITS/ML VIAL SQ SCH ×3 (08:49→20:01)
[2020-02-17] MEDS: VANCOMYCIN HCL 1 GM/D5% WATER 200 ML IV SCH ×2 (08:49→20:02)
[2020-02-17] MEDS: PARoxetine HCL 10 MG TABLET PO SCH (08:50)
[2020-02-17] MEDS: LURASIDONE HCL 40 MG TABLET PO SCH (08:50)
[2020-02-17] MEDS: NALTREXONE HCL 50 MG TABLET PO SCH (08:50)
[2020-02-17] MEDS: THIAMINE 100 MG TABLET PO SCH ×4 (08:51→21:00)
[2020-02-17] MEDS: PANTOPRAZOLE SODIUM 40 MG DR TABLET PO SCH (08:51)
[2020-02-17] MEDS: FUROSEMIDE 20 MG TABLET PO SCH (08:51)
[2020-02-17] MEDS: MULTIVITAMINS WITH MINERALS, THERAPEUTIC TABLET PO SCH (08:51)
[2020-02-17] MEDS: GABAPENTIN 300 MG CAPSULE PO SCH ×2 (08:51→20:01)
[2020-02-17 12:17] VITALS: BP 102/60
[2020-02-17 12:21] LABS: BASOPHILS % (AUTO) 1.2 % (0.0-2.0); EOSINOPHILS % (AUTO) 2.3 % (1.0-6.0); HEMATOCRIT 30.2 % (36-46); HEMOGLOBIN 9.9 g/dL (12.0-16.0); LYMPHOCYTES % (AUTO) 27.7 % (22.0-44.0); MEAN CORPUSCULAR HEMOGLOBIN 30.8 pg (26.0-34.0); MEAN CORPUSCULAR HGB CONC 32.9 G/dL (31.0-37.0); MEAN CORPUSCULAR VOLUME 94 fL (80-100); MONOCYTES # (AUTO) 0.4 K/uL (0.1-1.0); MONOCYTES % (AUTO) 4.9 % (2.0-9.0); NEUTROPHILS # (AUTO) 4.5 K/uL (1.8-7.7); NEUTROPHILS % (AUTO) 63.9 % (40.0-70.0); PLATELET COUNT (AUTO) 323 K/uL (150-450); RED BLOOD CELL COUNT(AUTO) 3.23 MIL/uL (4.00-5.20)
[2020-02-17 12:47] LABS: HEMOGLOBIN A1C 6.1 % (3.8-5.6)
[2020-02-17 12:50] LABS: LACTIC ACID 1.5 mmol/L (0.4-2.0)
[2020-02-17 13:14] LABS: ERYTHROCYTE SEDIMENTATION RATE 42 MM/HR (0-20)
[2020-02-17 13:43] LABS: CALCIUM, TOTAL 9.1 mg/dL (8.8-10.5); CREATININE 0.98 mg/dL (0.60-1.30); POTASSIUM 3.9 mmol/L (3.5-5.1)
[2020-02-17 14:08] LABS: ALBUMIN 3.2 g/dL (3.4-5.0); BILIRUBIN,TOTAL 0.1 mg/dL (0.1-1.0); CHOL/HDL RATIO 6.9 (3.9-5.7); FREE T4 (FREE THYROXINE) 0.27 ng/dL (0.76-1.46); MAGNESIUM 1.7 mg/dL (1.80-2.40); THYROID STIMULATING HORMONE 28.94 uIU/mL (0.36-3.74); TOTAL PROTEIN, SERUM 6.5 g/dL (6.4-8.2)
[2020-02-17 16:49] VITALS: BP 122/70
[2020-02-17 20:00] VITALS: BP 104/67
[2020-02-17] MEDS: DiphenhydrAMINE HCL 25 MG CAPSULE PO SCH (20:01)
[2020-02-18] VITALS (7 sets, daily range): BP systolic 105–138; BP diastolic 61–74
[2020-02-18] MEDS: HEPARIN SODIUM,PORCINE 5,000 UNITS/ML VIAL SQ SCH ×2 (07:30→19:30)
[2020-02-18 08:23] LABS: ANION GAP 8 mmol/L (8-16); CARBON DIOXIDE 31 mmol/L (22-29); CHLORIDE 97 mmol/L (98-107); CREATININE 0.94 mg/dL (0.60-1.30); GLOMERULAR FILTR. RATE CALC > 60 mL/min (>60); GLUCOSE,RANDOM 100 mg/dL (70-110); POTASSIUM 3.8 mmol/L (3.5-5.1); SODIUM SERUM 136 mmol/L (136-145); UREA NITROGEN, BLOOD 15 mg/dL (7-18); VANCOMYCIN,RANDOM 19.7 mcg/mL (25.0-50.0)
[2020-02-18] MEDS: VANCOMYCIN HCL 1 GM/D5% WATER 200 ML IV SCH (08:41)
[2020-02-18] MEDS: MULTIVITAMINS WITH MINERALS, THERAPEUTIC TABLET PO SCH (08:41)
[2020-02-18] MEDS: LURASIDONE HCL 40 MG TABLET PO SCH (08:41)
[2020-02-18] MEDS: FUROSEMIDE 20 MG TABLET PO SCH (08:41)
[2020-02-18] MEDS: GABAPENTIN 300 MG CAPSULE PO SCH ×2 (08:43→20:32)
[2020-02-18] MEDS: NALTREXONE HCL 50 MG TABLET PO SCH (08:43)
[2020-02-18] MEDS: PARoxetine HCL 10 MG TABLET PO SCH (08:43)
[2020-02-18] MEDS ORDERED: SODIUM CHLORIDE 0.9% 250 ML IV ONE (08:54)
[2020-02-18] MEDS: PANTOPRAZOLE SODIUM 40 MG DR TABLET PO SCH (09:00)
[2020-02-18] MEDS: VANCOMYCIN HCL 750 MG in DEXTROSE 5%-WATER 250 ML IV SCH (20:32)
[2020-02-18] MEDS: DiphenhydrAMINE HCL 25 MG CAPSULE PO SCH (20:33)
[2020-02-18] MEDS: THIAMINE 100 MG TABLET PO SCH (21:00)
[2020-02-18] MEDS ORDERED: IOVERSOL 350 MG/ML 100 ML VIAL ONE (22:17)
[2020-02-18] MEDS ORDERED: SODIUM CHLORIDE 0.9% 100 ML ONE (22:17)
[2020-02-19 04:17] VITALS: BP 120/81
[2020-02-19] MEDS: LEVOTHYROXINE SODIUM 75 MCG TABLET PO SCH (06:30)
[2020-02-19] MEDS: HEPARIN SODIUM,PORCINE 5,000 UNITS/ML VIAL SQ SCH ×2 (06:58→19:30)
[2020-02-19 07:08] LABS: ANION GAP 7 mmol/L (8-16); C-REACTIVE PROTEIN QUANT 1.12 mg/dL (0.00-0.30); CALCIUM, TOTAL 9.3 mg/dL (8.8-10.5); CARBON DIOXIDE 32 mmol/L (22-29); CHLORIDE 95 mmol/L (98-107); CREATININE 0.87 mg/dL (0.60-1.30); GLOMERULAR FILTR. RATE CALC > 60 mL/min (>60); GLUCOSE,RANDOM 94 mg/dL (70-110); POTASSIUM 3.7 mmol/L (3.5-5.1); SODIUM SERUM 134 mmol/L (136-145); UREA NITROGEN, BLOOD 16 mg/dL (7-18)
[2020-02-19 07:51] VITALS: BP 138/65
[2020-02-19] MEDS: VANCOMYCIN HCL 750 MG in DEXTROSE 5%-WATER 250 ML IV SCH ×2 (08:32→22:25)
[2020-02-19] MEDS: MULTIVITAMINS WITH MINERALS, THERAPEUTIC TABLET PO SCH (08:37)
[2020-02-19] MEDS: PARoxetine HCL 10 MG TABLET PO SCH (08:37)
[2020-02-19] MEDS: LURASIDONE HCL 40 MG TABLET PO SCH (08:37)
[2020-02-19] MEDS: GABAPENTIN 300 MG CAPSULE PO SCH ×2 (08:37→22:00)
[2020-02-19] MEDS: THIAMINE 100 MG TABLET PO SCH ×2 (08:37→22:00)
[2020-02-19] MEDS: PANTOPRAZOLE SODIUM 40 MG DR TABLET PO SCH (08:39)
[2020-02-19] MEDS: NALTREXONE HCL 50 MG TABLET PO SCH (08:39)
[2020-02-19] MEDS: FUROSEMIDE 20 MG TABLET PO SCH (08:39)
[2020-02-19 12:00] VITALS: BP 138/70
[2020-02-19 16:00] VITALS: BP 125/77
[2020-02-19 20:25] VITALS: BP 124/68
[2020-02-19] MEDS: DiphenhydrAMINE HCL 25 MG CAPSULE PO SCH (22:00)
[2020-02-20 00:08] VITALS: BP 115/65
[2020-02-20] MEDS ORDERED: SODIUM CHLORIDE 0.9% 250 ML IV ONE (03:25)
[2020-02-20 05:00] VITALS: BP 131/70
[2020-02-20] MEDS: LEVOTHYROXINE SODIUM 75 MCG TABLET PO SCH (06:08)
[2020-02-20] MEDS: HEPARIN SODIUM,PORCINE 5,000 UNITS/ML VIAL SQ SCH ×2 (07:30→19:30)
[2020-02-20] MEDS: THIAMINE 100 MG TABLET PO SCH ×2 (08:08→20:25)
[2020-02-20] MEDS: GABAPENTIN 300 MG CAPSULE PO SCH ×2 (08:08→20:25)
[2020-02-20] MEDS: MULTIVITAMINS WITH MINERALS, THERAPEUTIC TABLET PO SCH (08:08)
[2020-02-20] MEDS: PARoxetine HCL 10 MG TABLET PO SCH (08:08)
[2020-02-20] MEDS: VANCOMYCIN HCL 750 MG in DEXTROSE 5%-WATER 250 ML IV SCH ×2 (08:08→20:38)
[2020-02-20] MEDS: LURASIDONE HCL 40 MG TABLET PO SCH (08:08)
[2020-02-20] MEDS: NALTREXONE HCL 50 MG TABLET PO SCH (08:09)
[2020-02-20] MEDS: PANTOPRAZOLE SODIUM 40 MG DR TABLET PO SCH (08:09)
[2020-02-20] MEDS: FUROSEMIDE 20 MG TABLET PO SCH (08:09)
[2020-02-20 08:59] LABS: BASOPHILS % (AUTO) 1.2 % (0.0-2.0); EOSINOPHILS % (AUTO) 3.3 % (1.0-6.0); HEMATOCRIT 34.1 % (36-46); HEMOGLOBIN 11.4 g/dL (12.0-16.0); LYMPHOCYTES # (AUTO) 1.9 K/uL (1.0-4.8); LYMPHOCYTES % (AUTO) 26.1 % (22.0-44.0); MEAN CORPUSCULAR HEMOGLOBIN 30.9 pg (26.0-34.0); MEAN CORPUSCULAR HGB CONC 33.3 G/dL (31.0-37.0); MEAN CORPUSCULAR VOLUME 93 fL (80-100); MONOCYTES # (AUTO) 0.3 K/uL (0.1-1.0); MONOCYTES % (AUTO) 4.2 % (2.0-9.0); NEUTROPHILS # (AUTO) 4.7 K/uL (1.8-7.7); NEUTROPHILS % (AUTO) 65.2 % (40.0-70.0); PLATELET COUNT (AUTO) 348 K/uL (150-450); RED BLOOD CELL COUNT(AUTO) 3.68 MIL/uL (4.00-5.20); RED CELL DISTRIBUTION WIDTH 16.6 % (11.5-14.5)
[2020-02-20 09:17] LABS: C-REACTIVE PROTEIN QUANT 0.83 mg/dL (0.00-0.30); CALCIUM, TOTAL 9.8 mg/dL (8.8-10.5); CREATININE 0.97 mg/dL (0.60-1.30); POTASSIUM 4.1 mmol/L (3.5-5.1)
[2020-02-20 11:48] VITALS: BP 127/75
[2020-02-20 15:07] VITALS: BP 127/74
[2020-02-20 19:17] VITALS: BP 122/81
[2020-02-20] MEDS: DiphenhydrAMINE HCL 25 MG CAPSULE PO SCH (20:25)
[2020-02-20 23:07] VITALS: BP 101/57
[2020-02-21 04:33] VITALS: BP 121/67
[2020-02-21] MEDS: LEVOTHYROXINE SODIUM 75 MCG TABLET PO SCH (06:17)
[2020-02-21 06:56] LABS: ANION GAP 3 mmol/L (8-16); C-REACTIVE PROTEIN QUANT 0.66 mg/dL (0.00-0.30); CALCIUM, TOTAL 9.2 mg/dL (8.8-10.5); CARBON DIOXIDE 33 mmol/L (22-29); CHLORIDE 97 mmol/L (98-107); CREATININE 0.94 mg/dL (0.60-1.30); GLOMERULAR FILTR. RATE CALC > 60 mL/min (>60); GLUCOSE,RANDOM 87 mg/dL (70-110); SODIUM SERUM 133 mmol/L (136-145); UREA NITROGEN, BLOOD 21 mg/dL (7-18); VANCOMYCIN,RANDOM 20.2 mcg/mL (25.0-50.0)
[2020-02-21 07:18] VITALS: BP 115/70
[2020-02-21] MEDS: HEPARIN SODIUM,PORCINE 5,000 UNITS/ML VIAL SQ SCH ×2 (07:30→19:30)
[2020-02-21] MEDS: VANCOMYCIN HCL 750 MG in DEXTROSE 5%-WATER 250 ML IV SCH ×2 (08:26→20:54)
[2020-02-21] MEDS: FUROSEMIDE 20 MG TABLET PO SCH (08:27)
[2020-02-21] MEDS: GABAPENTIN 300 MG CAPSULE PO SCH ×2 (08:27→20:54)
[2020-02-21] MEDS: PARoxetine HCL 10 MG TABLET PO SCH (08:27)
[2020-02-21] MEDS: NALTREXONE HCL 50 MG TABLET PO SCH (08:27)
[2020-02-21] MEDS: MULTIVITAMINS WITH MINERALS, THERAPEUTIC TABLET PO SCH (08:28)
[2020-02-21] MEDS: LURASIDONE HCL 40 MG TABLET PO SCH (08:28)
[2020-02-21] MEDS: THIAMINE 100 MG TABLET PO SCH ×2 (08:29→20:54)
[2020-02-21] MEDS ORDERED: SODIUM CHLORIDE 0.9% 250 ML IV ONE (08:35)
[2020-02-21] MEDS: PANTOPRAZOLE SODIUM 40 MG DR TABLET PO SCH (08:39)
[2020-02-21 11:22] VITALS: BP 105/62
[2020-02-21 15:38] VITALS: BP 118/72
[2020-02-21 19:32] VITALS: BP 108/48
[2020-02-21] MEDS: DiphenhydrAMINE HCL 25 MG CAPSULE PO SCH (20:54)
[2020-02-21 23:57] VITALS: BP 104/56
[2020-02-22 03:47] VITALS: BP 147/77
[2020-02-22] MEDS: LEVOTHYROXINE SODIUM 75 MCG TABLET PO SCH (05:39)
[2020-02-22] MEDS: HEPARIN SODIUM,PORCINE 5,000 UNITS/ML VIAL SQ SCH ×2 (07:30→19:30)
[2020-02-22] MEDS: VANCOMYCIN HCL 750 MG in DEXTROSE 5%-WATER 250 ML IV SCH ×2 (08:00→20:41)
[2020-02-22] MEDS: LURASIDONE HCL 40 MG TABLET PO SCH (08:02)
[2020-02-22] MEDS: NALTREXONE HCL 50 MG TABLET PO SCH (08:02)
[2020-02-22] MEDS: PARoxetine HCL 10 MG TABLET PO SCH (08:02)
[2020-02-22] MEDS: THIAMINE 100 MG TABLET PO SCH ×2 (08:03→20:37)
[2020-02-22] MEDS: GABAPENTIN 300 MG CAPSULE PO SCH ×2 (08:03→20:37)
[2020-02-22] MEDS: MULTIVITAMINS WITH MINERALS, THERAPEUTIC TABLET PO SCH (08:03)
[2020-02-22 08:08] LABS: ANION GAP 5 mmol/L (8-16); C-REACTIVE PROTEIN QUANT 0.48 mg/dL (0.00-0.30); CALCIUM, TOTAL 9.4 mg/dL (8.8-10.5); CARBON DIOXIDE 32 mmol/L (22-29); CHLORIDE 97 mmol/L (98-107); CREATININE 0.92 mg/dL (0.60-1.30); GLOMERULAR FILTR. RATE CALC > 60 mL/min (>60); GLUCOSE,RANDOM 87 mg/dL (70-110); SODIUM SERUM 134 mmol/L (136-145); UREA NITROGEN, BLOOD 23 mg/dL (7-18)
[2020-02-22] MEDS: PANTOPRAZOLE SODIUM 40 MG DR TABLET PO SCH (08:10)
[2020-02-22] MEDS: FUROSEMIDE 20 MG TABLET PO SCH (08:10)
[2020-02-22 08:18] VITALS: BP 145/90
[2020-02-22 11:35] VITALS: BP 134/76
[2020-02-22 15:36] VITALS: BP 126/67
[2020-02-22 20:16] VITALS: BP 127/87
[2020-02-22] MEDS: DiphenhydrAMINE HCL 25 MG CAPSULE PO SCH (20:37)
[2020-02-23 00:08] VITALS: BP 132/64
[2020-02-23 05:09] VITALS: BP 122/78
[2020-02-23] MEDS: LEVOTHYROXINE SODIUM 75 MCG TABLET PO SCH (05:37)
[2020-02-23] MEDS: NALTREXONE HCL 50 MG TABLET PO SCH (08:41)
[2020-02-23] MEDS: PANTOPRAZOLE SODIUM 40 MG DR TABLET PO SCH (08:42)
[2020-02-23] MEDS: GABAPENTIN 300 MG CAPSULE PO SCH ×2 (08:42→20:12)
[2020-02-23] MEDS: THIAMINE 100 MG TABLET PO SCH ×2 (08:42→20:12)
[2020-02-23] MEDS: PARoxetine HCL 10 MG TABLET PO SCH (08:42)
[2020-02-23] MEDS: HEPARIN SODIUM,PORCINE 5,000 UNITS/ML VIAL SQ SCH ×2 (08:42→19:30)
[2020-02-23] MEDS: MULTIVITAMINS WITH MINERALS, THERAPEUTIC TABLET PO SCH (08:42)
[2020-02-23] MEDS: LURASIDONE HCL 40 MG TABLET PO SCH (08:42)
[2020-02-23] MEDS: FUROSEMIDE 20 MG TABLET PO SCH ×2 (08:42→08:53)
[2020-02-23] MEDS: VANCOMYCIN HCL 750 MG in DEXTROSE 5%-WATER 250 ML IV SCH ×2 (08:57→20:11)
[2020-02-23 09:32] VITALS: BP 137/65
[2020-02-23 10:43] LABS: CREATININE 1.08 mg/dL (0.60-1.30); POTASSIUM 3.8 mmol/L (3.5-5.1)
[2020-02-23 11:52] VITALS: BP 120/65
[2020-02-23 12:00] LABS: C-REACTIVE PROTEIN QUANT 0.48 mg/dL (0.00-0.30)
[2020-02-23 16:20] VITALS: BP 147/71
[2020-02-23] MEDS: DiphenhydrAMINE HCL 25 MG CAPSULE PO SCH (20:12)
[2020-02-23 20:40] VITALS: BP 129/71
[2020-02-24 00:16] VITALS: BP 131/60
[2020-02-24 04:53] VITALS: BP 128/67
[2020-02-24] MEDS: LEVOTHYROXINE SODIUM 75 MCG TABLET PO SCH (05:56)
[2020-02-24 07:26] LABS: CALCIUM, TOTAL 9.4 mg/dL (8.8-10.5); CREATININE 1.05 mg/dL (0.60-1.30); POTASSIUM 4.4 mmol/L (3.5-5.1); VANCOMYCIN,RANDOM 17.8 mcg/mL (25.0-50.0)
[2020-02-24] MEDS: HEPARIN SODIUM,PORCINE 5,000 UNITS/ML VIAL SQ SCH ×2 (07:30→19:30)
[2020-02-24 07:56] VITALS: BP 117/65
[2020-02-24] MEDS: FUROSEMIDE 20 MG TABLET PO SCH (09:00)
[2020-02-24] MEDS: PANTOPRAZOLE SODIUM 40 MG DR TABLET PO SCH (09:00)
[2020-02-24] MEDS: LURASIDONE HCL 40 MG TABLET PO SCH (09:17)
[2020-02-24] MEDS: VANCOMYCIN HCL 750 MG in DEXTROSE 5%-WATER 250 ML IV SCH ×2 (09:17→20:58)
[2020-02-24] MEDS: THIAMINE 100 MG TABLET PO SCH ×2 (09:18→20:58)
[2020-02-24] MEDS: PARoxetine HCL 10 MG TABLET PO SCH (09:18)
[2020-02-24] MEDS: GABAPENTIN 300 MG CAPSULE PO SCH ×2 (09:18→20:58)
[2020-02-24] MEDS: MULTIVITAMINS WITH MINERALS, THERAPEUTIC TABLET PO SCH (09:18)
[2020-02-24] MEDS: NALTREXONE HCL 50 MG TABLET PO SCH (09:18)
[2020-02-24 12:07] VITALS: BP 121/66
[2020-02-24 12:31] LABS: C-REACTIVE PROTEIN QUANT 0.39 mg/dL (0.00-0.30)
[2020-02-24 16:35] VITALS: BP 136/55
[2020-02-24 17:24] LABS: MAGNESIUM 2.2 mg/dL (1.80-2.40)
[2020-02-24 20:35] VITALS: BP 121/67
[2020-02-24] MEDS: DiphenhydrAMINE HCL 25 MG CAPSULE PO SCH (20:58)
[2020-02-24] MEDS ORDERED: SODIUM CHLORIDE 0.9% 250 ML IV ONE (21:08)
[2020-02-25 00:09] VITALS: BP 117/63
[2020-02-25 05:10] VITALS: BP 125/83
[2020-02-25] MEDS: LEVOTHYROXINE SODIUM 75 MCG TABLET PO SCH (05:43)
[2020-02-25 07:19] VITALS: BP 122/78
[2020-02-25] MEDS: HEPARIN SODIUM,PORCINE 5,000 UNITS/ML VIAL SQ SCH ×2 (07:30→19:30)
[2020-02-25] MEDS: VANCOMYCIN HCL 750 MG in DEXTROSE 5%-WATER 250 ML IV SCH ×2 (08:01→20:30)
[2020-02-25] MEDS: THIAMINE 100 MG TABLET PO SCH ×2 (08:02→20:29)
[2020-02-25] MEDS: NALTREXONE HCL 50 MG TABLET PO SCH (08:02)
[2020-02-25] MEDS: PANTOPRAZOLE SODIUM 40 MG DR TABLET PO SCH (08:02)
[2020-02-25] MEDS: LURASIDONE HCL 40 MG TABLET PO SCH (08:02)
[2020-02-25] MEDS: PARoxetine HCL 10 MG TABLET PO SCH (08:03)
[2020-02-25] MEDS: MULTIVITAMINS WITH MINERALS, THERAPEUTIC TABLET PO SCH (08:03)
[2020-02-25] MEDS: FUROSEMIDE 20 MG TABLET PO SCH (08:03)
[2020-02-25] MEDS: GABAPENTIN 300 MG CAPSULE PO SCH ×2 (08:03→20:29)
[2020-02-25 11:13] VITALS: BP 144/67
[2020-02-25 15:14] VITALS: BP 132/72
[2020-02-25 20:08] VITALS: BP 102/67
[2020-02-25] MEDS: DiphenhydrAMINE HCL 25 MG CAPSULE PO SCH (20:29)
[2020-02-26 00:10] VITALS: BP 118/54
[2020-02-26 04:17] VITALS: BP 128/83
[2020-02-26] MEDS: LEVOTHYROXINE SODIUM 75 MCG TABLET PO SCH (05:56)
[2020-02-26] MEDS: HEPARIN SODIUM,PORCINE 5,000 UNITS/ML VIAL SQ SCH (07:30)
[2020-02-26 07:39] VITALS: BP 126/60
[2020-02-26] MEDS: VANCOMYCIN HCL 750 MG in DEXTROSE 5%-WATER 250 ML IV SCH (08:03)
[2020-02-26] MEDS: THIAMINE 100 MG TABLET PO SCH (08:49)
[2020-02-26] MEDS: MULTIVITAMINS WITH MINERALS, THERAPEUTIC TABLET PO SCH (08:49)
[2020-02-26] MEDS: PARoxetine HCL 10 MG TABLET PO SCH (08:50)
[2020-02-26] MEDS: LURASIDONE HCL 40 MG TABLET PO SCH (08:50)
[2020-02-26] MEDS: NALTREXONE HCL 50 MG TABLET PO SCH (08:50)
[2020-02-26] MEDS: GABAPENTIN 300 MG CAPSULE PO SCH (08:50)
[2020-02-26] MEDS: PANTOPRAZOLE SODIUM 40 MG DR TABLET PO SCH (09:00)
[2020-02-26] MEDS: FUROSEMIDE 20 MG TABLET PO SCH (09:00)
[2020-02-26 09:57] LABS: ANION GAP 5 mmol/L (8-16); CALCIUM, TOTAL 9.2 mg/dL (8.8-10.5); CARBON DIOXIDE 30 mmol/L (22-29); CHLORIDE 100 mmol/L (98-107); CREATININE 0.88 mg/dL (0.60-1.30); GLOMERULAR FILTR. RATE CALC > 60 mL/min (>60); GLUCOSE,RANDOM 145 mg/dL (70-110); POTASSIUM 3.7 mmol/L (3.5-5.1); SODIUM SERUM 135 mmol/L (136-145); UREA NITROGEN, BLOOD 20 mg/dL (7-18)
[2020-02-26 11:50] VITALS: BP 115/50
== END 2020-02-26 15:04 | DRG 690 ==
LOC: 6N 16:50 → 4E 02-18 16:10 → 5S 02-19 16:54
PROVIDERS: ADMIT Internal Medicine Geriatric Medicine; ATTEND Internal Medicine Geriatric Medicine
DX: N39.0 Urinary tract infection, site not specified (principal); I31.3 Pericardial effusion (noninflammatory); E87.1 Hypo-osmolality and hyponatremia; B95.62 Methicillin resistant Staphylococcus aureus infection as the cause of diseases classified elsewhere; E03.9 Hypothyroidism, unspecified; E66.9 Obesity, unspecified; D64.9 Anemia, unspecified; J44.9 Chronic obstructive pulmonary disease, unspecified; I10 Essential (primary) hypertension; D72.829 Elevated white blood cell count, unspecified; K59.00 Constipation, unspecified; Q63.2 Ectopic kidney; Z91.19 Patient's noncompliance with other medical treatment and regimen; F25.0 Schizoaffective disorder, bipolar type; Z68.26 Body mass index [BMI] 26.0-26.9, adult; R26.9 Unspecified abnormalities of gait and mobility; F17.200 Nicotine dependence, unspecified, uncomplicated; F12.90 Cannabis use, unspecified, uncomplicated; Z72.89 Other problems related to lifestyle; Z88.2 Allergy status to sulfonamides; Z88.8 Allergy status to other drugs, medicaments and biological substances; Z88.6 Allergy status to analgesic agent; N20.0 Calculus of kidney
CPT/HCPCS: 71260; 72193; 74160; 80074; 83036; 83605; 83735; 84145; 84439; 84443; 85651; 86038; 86140; 86592; 87040; 93306; G0378; J1644; J3370; J7050; J7060

== ENCOUNTER 2020-03-23 12:25 | Emergency (ER) | payer MEDICARE, OTHER ==
[~2020-03-23] VITALS: Ht 167.6 cm; Wt 68.2 kg
[2020-03-23] MEDS ORDERED: DiphenhydrAMINE/ZINC ACET 30 GM CREAM TP ONE (13:15)
[2020-03-23 14:21] VITALS: BP 90/53
[2020-03-23] MEDS ORDERED: GABA-1181 PO (18:24)
[2020-03-23] MEDS ORDERED: ZINC113C10 TP (18:24)
== END 2020-03-23 14:15 | disposition home or self-care (01) ==
LOC: EMS 12:26
DX: R60.0 Localized edema (principal); L29.9 Pruritus, unspecified; I10 Essential (primary) hypertension; F17.210 Nicotine dependence, cigarettes, uncomplicated; Z88.6 Allergy status to analgesic agent; Z88.5 Allergy status to narcotic agent; Z88.8 Allergy status to other drugs, medicaments and biological substances; Z79.899 Other long term (current) drug therapy

== ENCOUNTER 2023-10-05 16:42 | Inpatient (IN) | payer MEDICARE, MEDICAID ==
[~2023-10-05] VITALS: Ht 149.9 cm; Wt 86.2 kg
[~2023-10-05 16:42] MED LIST changes: +DIPH-1243 PO; -DIPH25 PO; -DIPH50 PO; -FURO20 PO; +GABA-1181 PO; -LURA40TA2 PO; -LURA80TA2 PO; -MULT-248 PO; -NALT50TA PO; -PARO10TA71 PO; +ZINC113C10 TP
[2023-10-05 19:15] LABS: BASOPHILS % (AUTO) 1.2 % (0.0-2.0); EOSINOPHILS % (AUTO) 2.4 % (1.0-6.0); HEMATOCRIT 42.2 % (36-46); LYMPHOCYTES # (AUTO) 2.6 K/uL (1.0-4.8); LYMPHOCYTES % (AUTO) 20.4 % (22.0-44.0); MEAN CORPUSCULAR HEMOGLOBIN 29.9 pg (26.0-34.0); MEAN CORPUSCULAR HGB CONC 33.2 G/dL (31.0-37.0); MEAN CORPUSCULAR VOLUME 90 fL (80-100); MONOCYTES # (AUTO) 0.6 K/uL (0.1-1.0); MONOCYTES % (AUTO) 4.3 % (2.0-9.0); NEUTROPHILS # (AUTO) 9.3 K/uL (1.8-7.7); NEUTROPHILS % (AUTO) 71.7 % (40.0-70.0); PLATELET COUNT (AUTO) 327 K/uL (150-450); RED BLOOD CELL COUNT(AUTO) 4.69 MIL/uL (4.00-5.20); WHITE BLOOD COUNT (AUTO) 12.9 K/uL (4.5-11.0)
[2023-10-05 19:25] LABS: ALCOHOL, BLOOD (SERUM) < 3 mg/dL (0-10); ANION GAP 12 mmol/L (8-16); CALCIUM, TOTAL 9.4 mg/dL (8.8-10.5); CARBON DIOXIDE 27 mmol/L (22-29); CHLORIDE 99 mmol/L (98-107); GLOMERULAR FILTR. RATE CALC > 60 mL/min (>60); GLUCOSE,RANDOM 170 mg/dL (70-110); POTASSIUM 3.2 mmol/L (3.5-5.1); SODIUM SERUM 138 mmol/L (136-145); UREA NITROGEN, BLOOD 11 mg/dL (7-18)
[2023-10-05 19:30] LABS: ALANINE AMINOTRANSFERASE 26 U/L (12-78); ALBUMIN 3.3 g/dL (3.4-5.0); ALKALINE PHOSPHATASE 128 U/L (46-116); ASPARTATE AMINOTRANSFERASE 13 U/L (15-37); BILIRUBIN,TOTAL 0.3 mg/dL (0.1-1.0); TOTAL PROTEIN, SERUM 7.5 g/dL (6.4-8.2)
[2023-10-05 20:34] LABS: COVID AG,FIA SOURCE NASAL SWAB
[2023-10-05] MEDS: POTASSIUM CHLORIDE 20 MEQ ER TABLET PO ONE (20:43)
[2023-10-05 21:19] LABS: SARS-COV2 (COVID) ANTIGEN,FIA Negative (Negative)
[2023-10-05] MEDS ORDERED: ZOLPIDEM TARTRATE 10 MG TABLET PO PRN (22:45)
[2023-10-05] MEDS ORDERED: LORazepam 2 MG TABLET PO PRN (22:45)
[2023-10-05] MEDS ORDERED: QUEtiapine FUMARATE 100 MG TABLET PO PRN (22:45)
[2023-10-06 09:47] LABS: APPEARANCE,URINE CLEAR (CLEAR); BILIRUBIN,URINE NEGATIVE (NEGATIVE); COLOR,URINE YELLOW (YELLOW); GLUCOSE, URINE (UA) >=1000 mg/dL (NEGATIVE); KETONES,URINE NEGATIVE (NEGATIVE); LEUKOCYTE ESTERASE ,URINE NEGATIVE (NEGATIVE); NITRATE,URINE NEGATIVE (NEGATIVE); OCCULT BLOOD,URINE TRACE (NEGATIVE); PROTEIN,URINE TRACE mg/dL (NEGATIVE); SPECIFIC GRAVITIY, URINE 1.038 (1.003-1.030); UROBILINOGEN,URINE <=1.0 mg/dL (<=1.0)
[2023-10-06 09:53] LABS: ALCOHOL, URINE DRUG SCREEN NEGATIVE (NEGATIVE); AMPHET/METH SCREEN,URINE NEGATIVE (NEGATIVE); BARBITURATE SCREEN, URINE NEGATIVE (NEGATIVE); BENZODIAZEPINES SCREEN,URINE NEGATIVE (NEGATIVE); CANNABINOID SCREEN,URINE NEGATIVE (NEGATIVE); COCAINE SCREEN,URINE NEGATIVE (NEGATIVE); METHADONE SCREEN, URINE NEGATIVE (NEGATIVE); OPIATE SCREEN,URINE NEGATIVE (NEGATIVE); PHENCYCLIDINE SCREEN,URINE NEGATIVE (NEGATIVE)
[2023-10-06 10:01] LABS: WBC,URINE 0-2 /HPF (0-5)
[2023-10-06 10:02] LABS: BACTERIA,URINE Moderate /HPF (None Seen); SQUAMOUS EPITHELIAL CELL,UR Moderate /LPF (None Seen)
[2023-10-06] MEDS ORDERED: FOLI-130 PO (11:16)
[2023-10-06] MEDS: POTASSIUM CHLORIDE 20 MEQ ER TABLET PO ONE (11:20)
[2023-10-06 13:01] LABS: GLUCOMETER DEV NAME(LOC) BV2S.; GLUCOSE,POINT OF CARE 177 MG/DL (70-110)
[2023-10-06] MEDS ORDERED: LURASIDONE HCL 20 MG TABLET PO PRN (14:45)
[2023-10-06] MEDS ORDERED: MAG HYDROX/ALUMINUM HYD/SIMETH ES 30 ML SUSPENSION UDCUP PO PRN (14:45)
[2023-10-06] MEDS ORDERED: MAGNESIUM HYDROXIDE SUSPENSION 30 ML UDCUP PO PRN (14:45)
[2023-10-06] MEDS ORDERED: PROMETHAZINE HCL 25 MG TABLET PO PRN (14:45)
[2023-10-06] MEDS ORDERED: LOPERAMIDE HCL 2 MG CAPSULE PO PRN (14:45)
[2023-10-06] MEDS ORDERED: HydrOXYzine PAMOATE 50 MG CAPSULE PO PRN (14:45)
[2023-10-06] MEDS ORDERED: TUBERCULIN, PURIFIED PROTEIN DERIVATIVE 5 TU/0.1 ML SYRINGE ID ONE (14:45)
[2023-10-06] MEDS ORDERED: GuaiFENesin/D-METHORPHAN [SUGAR-FREE] 200-20MG/10 ML SYRUP UDCUP PO PRN (14:45)
[2023-10-06] MEDS ORDERED: GLUCAGON,HUMAN RECOMBINANT 1 MG VIAL IM PRN (16:00)
[2023-10-06 16:30] VITALS: BP 124/66; PULSE 90; RESP 18; TEMP 97.6; O2SAT 94
[2023-10-06] MEDS: MetFORMIN HCL 500 MG TABLET PO SCH (17:00)
[2023-10-06] MEDS: OXYBUTYNIN CHLORIDE 5 MG TABLET PO SCH (17:00)
[2023-10-06] MEDS: NITROFURANTOIN MONOHYD/M-CRYST 100 MG CAPSULE [MACROBID] PO SCH (17:00)
[2023-10-06] MEDS: BUDESONIDE/FORMOTEROL FUMARATE 80-4.5 MCG/PUFF 10.2 GM INHALER IH SCH (17:00)
[2023-10-06] MEDS: LURASIDONE HCL 20 MG TABLET PO SCH (17:06)
[2023-10-06] MEDS: THIAMINE 100 MG TABLET PO SCH (17:06)
[2023-10-06 17:20] LABS: GLUCOMETER DEV NAME(LOC) BV2X.2; GLUCOSE,POINT OF CARE 118 MG/DL (70-110)
[2023-10-06 20:39] VITALS: BP 118/74; PULSE 96; RESP 16; TEMP 97.6; O2SAT 94
[2023-10-06] MEDS: MELATONIN 5 MG TABLET PO SCH (20:49)
[2023-10-06] MEDS: GABAPENTIN 400 MG CAPSULE PO SCH (20:49)
[2023-10-06] MEDS: DOCUSATE SODIUM 100 MG CAPSULE PO SCH (20:50)
[2023-10-06] MEDS: ZINC OXIDE 16% PASTE 57 GM TUBE TP SCH (20:50)
[2023-10-06] MEDS: APIXABAN 5 MG TABLET PO SCH (20:51)
[2023-10-06] MEDS: ATORVASTATIN CALCIUM 40 MG TABLET PO SCH (20:52)
[2023-10-06] MEDS: LATANOPROST 0.005% 2.5 ML OPHTHALMIC SOLUTION OS SCH (21:00)
[2023-10-06] MEDS: INSULIN LISPRO 100 UNITS/ML SQ PRN (21:06)
[2023-10-06 21:20] LABS: GLUCOMETER DEV NAME(LOC) BV2X.2; GLUCOSE,POINT OF CARE 147 MG/DL (70-110)
[2023-10-07 06:00] LABS: GLUCOMETER DEV NAME(LOC) BV2X.2; GLUCOSE,POINT OF CARE 142 MG/DL (70-110)
[2023-10-07] MEDS: LEVOTHYROXINE SODIUM 75 MCG TABLET PO SCH (06:37)
[2023-10-07] MEDS: PANTOPRAZOLE SODIUM 40 MG DR TABLET PO SCH (09:00)
[2023-10-07] MEDS ORDERED: FOLIC ACID 1 MG TABLET PO SCH (09:00)
[2023-10-07] MEDS: CHOLECALCIFEROL (VIT D3) 2,000 UNITS [50 MCG] TABLET PO SCH (09:00)
[2023-10-07] MEDS: DULoxetine HCL 20 MG CAPSULE PO SCH (09:00)
[2023-10-07] MEDS: FOLIC ACID 1 MG TABLET PO SCH (09:00)
[2023-10-07] MEDS: MULTIVITAMINS WITH MINERALS, THERAPEUTIC TABLET PO SCH (09:00)
[2023-10-07] MEDS: LISINOPRIL 5 MG TABLET PO SCH (09:00)
[2023-10-07] MEDS: OMEGA-3/DHA/EPA/FISH OIL 1,000 MG CAPSULE PO SCH (09:00)
[2023-10-07] MEDS: EMPAGLIFLOZIN 10 MG TABLET PO SCH (09:01)
[2023-10-07 09:23] VITALS: BP 107/70; PULSE 95; RESP 20; TEMP 97.1; O2SAT 95
[2023-10-07 11:26] LABS: GLUCOMETER DEV NAME(LOC) BV2X.2; GLUCOSE,POINT OF CARE 142 MG/DL (70-110)
[2023-10-07 16:56] LABS: GLUCOMETER DEV NAME(LOC) BV2X.2; GLUCOSE,POINT OF CARE 176 MG/DL (70-110)
[2023-10-07] MEDS: DiphenhydrAMINE HCL 25 MG CAPSULE PO SCH (20:44)
[2023-10-07 20:55] LABS: GLUCOMETER DEV NAME(LOC) BV2X.2; GLUCOSE,POINT OF CARE 148 MG/DL (70-110)
[2023-10-07] MEDS: PALIPERIDONE PALMITATE 234 MG/1.5 ML SYRINGE IM ONE (22:44)
[2023-10-07 23:56] VITALS: BP 116/77; PULSE 90; RESP 19; TEMP 97.5; O2SAT 96
[2023-10-08 05:31] LABS: GLUCOMETER DEV NAME(LOC) BV2X.2; GLUCOSE,POINT OF CARE 133 MG/DL (70-110)
[2023-10-08] MEDS: NYSTATIN 15 GM POWDER BOTTLE TP SCH (08:11)
[2023-10-08 12:52] VITALS: BP 114/81; PULSE 90; RESP 16; TEMP 96.9; O2SAT 95
[2023-10-08 13:16] LABS: GLUCOMETER DEV NAME(LOC) BV2X.2; GLUCOSE,POINT OF CARE 145 MG/DL (70-110)
[2023-10-08 16:55] LABS: GLUCOMETER DEV NAME(LOC) BV2X.2; GLUCOSE,POINT OF CARE 157 MG/DL (70-110)
[2023-10-08 20:50] LABS: GLUCOMETER DEV NAME(LOC) BV2X.2; GLUCOSE,POINT OF CARE 180 MG/DL (70-110)
[2023-10-08] MEDS: GABAPENTIN 400 MG CAPSULE PO SCH (21:14)
[2023-10-08 22:00] VITALS: BP 134/95; PULSE 91; RESP 18; TEMP 97; O2SAT 95
[2023-10-09 06:31] LABS: GLUCOMETER DEV NAME(LOC) BV2X.2; GLUCOSE,POINT OF CARE 157 MG/DL (70-110)
[2023-10-09 08:24] VITALS: BP 102/61; PULSE 76; RESP 17; TEMP 98; O2SAT 95
[2023-10-09 08:59] LABS: HEMOGLOBIN A1C 7.4 % (3.8-5.6)
[2023-10-09 09:01] LABS: ANION GAP 10 mmol/L (8-16); CALCIUM, TOTAL 9.5 mg/dL (8.8-10.5); CARBON DIOXIDE 27 mmol/L (22-29); CHLORIDE 98 mmol/L (98-107); CHOL/HDL RATIO 6.2 (3.9-5.7); CHOLESTEROL 216 mg/dL (131-200); CREATININE 0.59 mg/dL (0.60-1.30); FREE T4 (FREE THYROXINE) 0.92 ng/dL (0.76-1.46); GLOMERULAR FILTR. RATE CALC > 60 mL/min (>60); GLUCOSE,RANDOM 143 mg/dL (70-110); HDL CHOLESTEROL 35 mg/dL (40-60); LDL CHOL (CALC.) 116 mg/dL (0-130); SODIUM SERUM 135 mmol/L (136-145); THYROID STIMULATING HORMONE 6.18 uIU/mL (0.36-3.74); TRIGLYCERIDES 327 mg/dL (15-150); UREA NITROGEN, BLOOD 13 mg/dL (7-18)
[2023-10-09 11:45] LABS: GLUCOMETER DEV NAME(LOC) BV2X.2; GLUCOSE,POINT OF CARE 155 MG/DL (70-110)
[2023-10-09 17:21] LABS: GLUCOMETER DEV NAME(LOC) BV2X.2; GLUCOSE,POINT OF CARE 164 MG/DL (70-110)
[2023-10-09] MEDS: DiphenhydrAMINE HCL 25 MG CAPSULE PO SCH (20:14)
[2023-10-09 20:18] VITALS: BP 113/68; PULSE 95; RESP 18; TEMP 97.1; O2SAT 96
[2023-10-10 06:06] LABS: HEPATITIS A ANTIBODY IGM Negative (Negative); HEPATITIS B CORE IGM Negative (Negative); HEPATITIS C AB (EIA) Non Reactive (Non Reactive)
[2023-10-10 06:21] LABS: GLUCOMETER DEV NAME(LOC) BV2X.2; GLUCOSE,POINT OF CARE 143 MG/DL (70-110)
[2023-10-10 08:08] VITALS: BP 108/76; PULSE 97; RESP 17; TEMP 97.7; O2SAT 95
[2023-10-10] MEDS: MUPIROCIN CALCIUM 2% 22 GM OINTMENT NASAL SCH (14:53)
[2023-10-10 16:25] LABS: GLUCOMETER DEV NAME(LOC) BV2X.2; GLUCOSE,POINT OF CARE 123 MG/DL (70-110)
[2023-10-10 20:45] LABS: GLUCOMETER DEV NAME(LOC) BV2X.2; GLUCOSE,POINT OF CARE 195 MG/DL (70-110)
[2023-10-10 23:01] VITALS: BP 113/66; PULSE 96; RESP 18; TEMP 98; O2SAT 97
[2023-10-11 06:35] LABS: GLUCOMETER DEV NAME(LOC) BV2X.2; GLUCOSE,POINT OF CARE 135 MG/DL (70-110)
[2023-10-11 08:13] VITALS: BP 117/75; PULSE 98; RESP 17; TEMP 97.9; O2SAT 94
[2023-10-11] MEDS: PALIPERIDONE PALMITATE 156 MG/ML SYRINGE IM ONE (10:11)
[2023-10-11 16:51] LABS: GLUCOMETER DEV NAME(LOC) BV2X.2; GLUCOSE,POINT OF CARE 118 MG/DL (70-110)
[2023-10-11 20:04] VITALS: BP 123/66; PULSE 76; RESP 18; TEMP 97.7; O2SAT 95
[2023-10-12 06:31] LABS: GLUCOMETER DEV NAME(LOC) BV2X.2; GLUCOSE,POINT OF CARE 124 MG/DL (70-110)
[2023-10-12 08:26] LABS: BASOPHILS % (AUTO) 0.6 % (0.0-2.0); EOSINOPHILS % (AUTO) 3.1 % (1.0-6.0); HEMATOCRIT 42.2 % (36-46); HEMOGLOBIN 13.9 g/dL (12.0-16.0); LYMPHOCYTES # (AUTO) 2.9 K/uL (1.0-4.8); LYMPHOCYTES % (AUTO) 27.5 % (22.0-44.0); MEAN CORPUSCULAR HEMOGLOBIN 29.4 pg (26.0-34.0); MEAN CORPUSCULAR HGB CONC 32.9 G/dL (31.0-37.0); MEAN CORPUSCULAR VOLUME 90 fL (80-100); MONOCYTES # (AUTO) 0.6 K/uL (0.1-1.0); NEUTROPHILS # (AUTO) 6.7 K/uL (1.8-7.7); NEUTROPHILS % (AUTO) 62.8 % (40.0-70.0); PLATELET COUNT (AUTO) 329 K/uL (150-450); RED BLOOD CELL COUNT(AUTO) 4.71 MIL/uL (4.00-5.20); RED CELL DISTRIBUTION WIDTH 17.1 % (11.5-14.5); WHITE BLOOD COUNT (AUTO) 10.7 K/uL (4.5-11.0)
[2023-10-12 08:33] LABS: ANION GAP 10 mmol/L (8-16); CALCIUM, TOTAL 9.2 mg/dL (8.8-10.5); CARBON DIOXIDE 26 mmol/L (22-29); CHLORIDE 99 mmol/L (98-107); CREATININE 0.71 mg/dL (0.60-1.30); GLOMERULAR FILTR. RATE CALC > 60 mL/min (>60); GLUCOSE,RANDOM 187 mg/dL (70-110); POTASSIUM 3.8 mmol/L (3.5-5.1); SODIUM SERUM 135 mmol/L (136-145); UREA NITROGEN, BLOOD 16 mg/dL (7-18)
[2023-10-12] MEDS: NYSTATIN 30 GM CREAM TP SCH (09:00)
[2023-10-12 14:34] VITALS: BP 121/72; PULSE 78; RESP 18; TEMP 98.1; O2SAT 95
[2023-10-12] MEDS ORDERED: PALI117D IM (14:36)
[2023-10-12] MEDS ORDERED: MELA5TAB40 PO (14:36)
[2023-10-12] MEDS ORDERED: OMEG-135 PO (14:36)
[2023-10-12] MEDS ORDERED: GABA-1201 PO (14:36)
[2023-10-12] MEDS ORDERED: DIPH-1243 PO (14:36)
[2023-10-12 17:00] LABS: GLUCOMETER DEV NAME(LOC) BV2X.2; GLUCOSE,POINT OF CARE 175 MG/DL (70-110)
[2023-10-12 21:02] VITALS: BP 109/65; PULSE 69; RESP 16; TEMP 97.8; O2SAT 92
[2023-10-13 06:40] LABS: GLUCOMETER DEV NAME(LOC) BV2X.2; GLUCOSE,POINT OF CARE 164 MG/DL (70-110)
[2023-10-13] MEDS: MetFORMIN HCL 500 MG TABLET PO SCH (06:53)
[2023-10-13 08:16] VITALS: BP 119/79; PULSE 80; RESP 19; TEMP 98; O2SAT 96
[2023-10-13] MEDS ORDERED: PALI117D IM (09:26)
[2023-10-13] MEDS ORDERED: PALI78DI IM (09:26)
[2023-10-13] MEDS ORDERED: MELA5TAB40 PO (09:36)
[2023-10-13] MEDS ORDERED: DIPH-1243 PO (09:52)
[2023-10-13] MEDS ORDERED: GABA-1201 PO (09:56)
[2023-10-13] MEDS ORDERED: OMEG-135 PO (10:07)
[2023-11-04] MEDS ORDERED: PALIPERIDONE PALMITATE 117 MG/0.75 ML SYRINGE IM SCH (09:00)
== END 2023-10-13 14:24 | DRG 885 ==
LOC: EMS 16:42 → B2X 10-06 10:00
PROVIDERS: ADMIT Psychiatry & Neurology Psychiatry; ATTEND Psychiatry & Neurology Psychiatry
PROC: GZHZZZZ Group Psychotherapy (ICD-10-PCS; principal; 2023-10-06)
PROC: GZ51ZZZ Individual Psychotherapy, Behavioral (ICD-10-PCS; 2023-10-06)
DX: F25.0 Schizoaffective disorder, bipolar type (principal); N39.0 Urinary tract infection, site not specified; F17.200 Nicotine dependence, unspecified, uncomplicated; E87.6 Hypokalemia; G25.81 Restless legs syndrome; E78.5 Hyperlipidemia, unspecified; G80.9 Cerebral palsy, unspecified; E06.3 Autoimmune thyroiditis; I10 Essential (primary) hypertension; Z20.822 Contact with and (suspected) exposure to COVID-19; F32.9 Major depressive disorder, single episode, unspecified; I25.10 Atherosclerotic heart disease of native coronary artery without angina pectoris; K21.9 Gastro-esophageal reflux disease without esophagitis; R32 Unspecified urinary incontinence; Z85.850 Personal history of malignant neoplasm of thyroid; Z86.73 Personal history of transient ischemic attack (TIA), and cerebral infarction without residual deficits; Z86.718 Personal history of other venous thrombosis and embolism; Z88.6 Allergy status to analgesic agent; Z88.1 Allergy status to other antibiotic agents; Z88.5 Allergy status to narcotic agent; Z88.2 Allergy status to sulfonamides; Z88.8 Allergy status to other drugs, medicaments and biological substances; Z91.199 Patient's noncompliance with other medical treatment and regimen due to unspecified reason
CPT/HCPCS: 80048; 80053; 80061; 80074; 80307; 81001; 82962; 83036; 84439; 84443; 85025; 86592; 87081; 87086; 87186; 99284; G0480; Q9967